=== PATIENT | female | born 1940 | race Caucasian/White ===

== ENCOUNTER 2016-08-31 11:19 | Inpatient (IN) | payer OTHER, BC ==
[2016-08-31 11:29] VITALS: BMI 21.4
--- NOTE | 2016-08-31 11:29 | PDOC ---
Attending Attestation - Resident Resident Name: Gaurav Duran - ED Attending Attestation I have performed the following: I have examined & evaluated the patient, The case was reviewed & discussed with the resident, I agree w/resident's findings & plan, Exceptions are as noted - HPI HPI: 08/31/16 11:32 The patient is a 76-year-old female with a significant past medical history of hypertension, hyperlipidemia, coronary artery disease, end-stage renal disease ( hemodialysis Tuesday, , Tuesday), who presents to the emergency department at the encouragement of her deck steward, for evaluation of a clotted AV fistula. The patient was not dialyzed today. - Physicial Exam PE: 08/31/16 11:33 The patient is well-appearing and in no acute distress Vitals noted No thrill or bruit appreciated 08/31/16 11:42 08/31/16 11:42 - Medical Decision Making 08/31/16 11:33 The patient is well-appearing and in no acute distress Will obtain labs There are no obvious indications for acute hemodialysis Will consult vascular surgery 08/31/16 11:59 EKG noted There are isolated peaked T waves in lead V2, but not elsewhere Will await labs 08/31/16 13:18 Labs noted including potassium of 7.1 I spoke to the seed laboratory technician personally The specimen was only very slightly hemolyzed Will treat with calcium, and sling and dextrose Vascular surgery aware and [address] Shiley to expedite dialysis Renal aware, and will dialyze Will admit Clinical impression: Hyperkalemia Clotted AV fistula 08/31/16 13:48 Case discussed in detail with admitting provider including history, physical exam and ancillary studies. Admitting physician has assumed care for the patient, will follow all pending diagnostics and will complete the evaluation and treatment. Discharge Disposition - Discharge Dispostion Last Admission D/C Date: 06/10/13 Admit: Yes - Diagnosis Hyperkalemia, Clotted renal dialysis AV graft - Referrals Referrals: Aldo Yen MD [Primary Care Provider] -
--- NOTE | 2016-08-31 12:18 | PDOC ---
History of Present Illness <Girma Saul - Last Filed: 08/31/16 13:41> - General History Source: Patient Exam Limitations: No Limitations - History of Present Illness Initial Comments: 08/31/16 12:13 The patient is a 76 year old female with a significant past medical history of ESRD, HTL, Hyperlipidemia receiving dialysis T/R/S, who presents to the emergency department after dialysis failed to access her fistula. The patient denies chest pain, shortness of breath, headache and dizziness. Denies fever, chills, nausea, vomit, diarrhea and constipation. Denies dysuria, frequency, urgency and hematuria. Allergies: NKDA Past surgical history: Hip replacement and AV Fistula Dr. Melisa Workman sent in <Gaurav Duran - Last Filed: 08/31/16 14:13> - General Chief Complaint: Dialysis Shunt Problem Stated Complaint: CLOTTED AV FISTULA Time Seen by Provider: 08/31/16 11:28 Past History <Girma Saul - Last Filed: 08/31/16 13:41> - Past Medical History Anemia: Yes Cardiac Disorders: No CVA: No Diabetes: No Dialysis: No Disorders: Yes (acute renal failure, membraneous nephropathy) HTN: Yes Hypercholesterolemia: Yes Suicide Attempt (Hx): No - Surgical History Abdominal Surgery: No Cardiac Surgery: No GI Surgery: No Orthopedic Surgery: Yes (Left Hip) - Immunization History Immunization Up to Date: Yes - Psycho/Social/Smoking Cessation Hx Anxiety: Yes Suicidal Ideation: No Smoking Status: No Smoking History: Never smoked Have you smoked in the past 12 months: No Number of Cigarettes Smoked Daily: 0 If you are a former smoker, when did you quit?: no Information on smoking cessation initiated: No Hx Alcohol Use: No Drug/Substance Use Hx: No Substance Use Type: None Hx Substance Use Treatment: No <Gaurav Duran - Last Filed: 08/31/16 14:13> - Past Medical History Allergies/Adverse Reactions: Allergies Allergy/AdvReac Type Severity Reaction Status Date / Time No Known Allergies Allergy Verified 08/31/16 11:29 Home Medications: Ambulatory Orders Diltiazem "Cd" [Tiazac] 420 mg PO DAILY 10/14/11 Metoclopramide Oral Soln [Reglan Oral Solution -] 10 mg PO TID #0 ml 10/18/11 Rabeprazole Sodium [Aciphex] 20 mg PO DAILY #0 tablet. 10/18/11 Sevelamer Carbonate [Renvela -] 800 mg PO TID #0 tab 10/18/11 Losartan Potassium 50 mg PO DAILY 06/07/13 Vitamin B Comp W-C [Nephro-Marquis -] 1 tablet PO DAILY 08/31/16 Review of Systems - Review of Systems Able to Perform ROS?: Yes Comments:: 08/31/16 12:18 GENERAL/CONSTITUTIONAL: No fever or chills. No weakness. HEAD, EYES, EARS, NOSE AND THROAT: No change in vision. No ear pain or discharge. No sore throat. CARDIOVASCULAR: No chest pain or shortness of breath RESPIRATORY: No cough, wheezing, or hemoptysis. GASTROINTESTINAL: No nausea, vomiting, diarrhea or constipation. GENITOURINARY: No dysuria, frequency, or change in urination. MUSCULOSKELETAL: No joint or muscle swelling or pain. No neck or back pain. SKIN: No rash NEUROLOGIC: No headache, vertigo, loss of consciousness, or change in strength/ sensation. ENDOCRINE: No increased thirst. No abnormal weight change HEMATOLOGIC/LYMPHATIC: No anemia, easy bleeding, or history of blood clots. ALLERGIC/IMMUNOLOGIC: No hives or skin allergy. <Gaurav Duran - Last Filed: 08/31/16 14:13> *Physical Exam - Vital Signs Last Vital Signs Temp Pulse Resp BP Pulse Ox 98.2 F 95 H 18 139/80 98 08/31/16 11:27 08/31/16 13:32 08/31/16 11:27 08/31/16 11:27 08/31/16 13:32 <Girma Saul - Last Filed: 08/31/16 13:41> - Vital Signs Last Vital Signs Temp Pulse Resp BP Pulse Ox 98.2 F 101 H 18 139/80 97 08/31/16 11:27 08/31/16 11:27 08/31/16 11:27 08/31/16 11:08/31/16 11:27 - Physical Exam Comments: 08/31/16 12:20 GENERAL: Awake, alert, and fully oriented, in no acute distress HEAD: No signs of trauma, normocephalic, atraumatic EYES: PERRLA, EOMI, sclera anicteric, conjunctiva clear ENT: Auricles normal inspection, hearing grossly normal, nares patent, oropharynx clear without exudates. Moist mucosa NECK: Normal ROM, supple, no lymphadenopathy, JVD, or masses LUNGS: No distress, speaks full sentences, clear to auscultation bilaterally HEART: Regular rate and rhythm, normal S1 and S2, no murmurs, rubs or gallops, peripheral pulses normal and equal bilaterally. ABDOMEN: Soft, nontender, normoactive bowel sounds. No guarding, no rebound. No masses EXTREMITIES: +AV graft X2 noted on LUE. Unable to appreciate thrill or bruit on either. Normal range of motion, no edema. No clubbing or cyanosis. Good distal pulses. NEUROLOGICAL: Cranial nerves II through XII grossly intact. Normal speech, normal gait, no focal sensorimotor deficits SKIN: Warm, Dry, normal turgor, no rashes or lesions noted. <Gaurav Duran - Last Filed: 08/31/16 14:13> ED Treatment Course - LABORATORY CBC & Chemistry Diagram: 08/31/16 12:18 08/31/16 12:18 - ADDITIONAL ORDERS Additional order review: Laboratory Results 08/31/16 08/31/16 08/31/16 12:18 12:18 12:18 INR 0.92 PTT (Actin FS) 32.3 Sodium 137 Potassium 7.1 H* D Chloride 104 Carbon Dioxide 22 Anion Gap 11 BUN 107 H* D Creatinine 7.9 H* D Creat Clearance w eGFR 4.94 Random Glucose 85 Calcium 8.9 Magnesium 2.5 H Total Bilirubin 0.4 AST 35 D ALT 21 Alkaline Phosphatase 124 H Creatine Kinase 170 CK-MB (CK-2) 1.6 Troponin I < 0.02 Total Protein 7.6 Albumin 3.5 08/31/16 12:18 RBC 3.51 L MCV 96.4 H MCHC 34.1 RDW 13.1 MPV 8.8 D Neutrophils % 44.8 D Lymphocytes % 41.9 H Monocytes % 9.6 Eosinophils % 3.1 Basophils % 0.6 - Medications Given in the ED: ED Medications Discontinued Medications Generic Name Dose Route Start Last Admin Trade Name Freq PRN Reason Stop Dose Admin Dextrose 50 gm 08/31/16 13:07 08/31/16 13:24 D50w (Vial) - IVPUSH 08/31/16 13:08 50 gm NOW ONE Administration Insulin Human Regular 10 units 08/31/16 13:07 08/31/16 13:24 Novolin R Vial *For Ivpush Or Iv Drip Only* IVPUSH 08/31/16 13:08 10 unit ONCE ONE Administration <Girma Saul - Last Filed: 08/31/16 13:41> - LABORATORY CBC & Chemistry Diagram: 08/31/16 12:18 08/31/16 12:18 <Gaurav Duran - Last Filed: 08/31/16 14:13> Medical Decision Making - Medical Decision Making 08/31/16 13:37 Dr. Melisa Workman was consulted regarding the patient at 1:38pm Dr. Aldo Yen was called regarding the patient at 1:43pm <Girma Saul - Last Filed: 08/31/16 13:41> - Medical Decision Making 08/31/16 12:22 Ms. Burton reported to ER under advice of Dr. Melisa Herzog after failure of scheduled dialysis this AM. EKG showed minimal peaked T-waves in V2, labs ordered to look for Hyperkalemia. Patient in no acute distress. Neurology at bedside. Vascular surgery consulted. Potassium 7.1. Dr. Tenorio to put in temporary femoral shiley for dialysis. 08/31/16 14:10 Dr. Tenorio put in Shiley for temporary dialysis today. Scheduled for surgery to fix AV tomorrow AM. <Gaurav Duran - Last Filed: 08/31/16 14:13> *DC/Admit/Observation/Transfer <Girma Saul - Last Filed: 08/31/16 13:41> - Attestations Physician Attestion: 08/31/16 14:12 I, Dr. Gaurav Duran, attest that this document has been prepared under my direction and personally reviewed by me in its entirety. I further attest, that it accurately reflects all work, treatment, procedures and medical decision -making performed by me. <Gaurav Duran - Last Filed: 08/31/16 14:13> Diagnosis at time of Disposition: Hyperkalemia, Clotted renal dialysis AV graft - Referrals Referrals: Aldo Yen MD [Primary Care Provider] -
[2016-08-31 12:34] LABS: BASOPHIL 0.6 % (0-2.0); EOSINOPHIL 3.1 % (0-4.5); MCH 32.8 pg (25.7-33.7); MCHC 34.1 g/dl (32.0-36.0); MEAN CELL VOLUME 96.4 fl (80-96); MEAN PLT VOLUME 8.8 fl (7.5-11.1); NEUTROPHILS 44.8 % (42.8-82.8); PLATELET COUNT 192 K/MM3 (134-434); RDW 13.1 % (11.6-15.6); WHITE BLOOD COUNT 10.2 K/mm3 (4.0-10.0)
[2016-08-31 12:50] LABS: ALBUMIN 3.5 g/dl (3.4-5.0); ANION GAP 11 (8-16); BILIRUBIN,TOTAL 0.4 mg/dL (0.2-1.0); CALCIUM 8.9 mg/dL (8.5-10.1); CO2 22 mmol/L (21-32); GLUCOSE,RANDOM 85 mg/dL (74-106); SGPT/ALT 21 U/L (12-78); TOT PROT 7.6 g/dl (6.4-8.2)
[2016-08-31 12:55] LABS: ALK PHOS 124 U/L (45-117); TROPONIN I < 0.02 ng/ml (0.00-0.05)
[2016-08-31 13:01] LABS: MAGNESIUM 2.5 mg/dL (1.8-2.4)
[2016-08-31 13:02] LABS: SGOT/AST 35 U/L (15-37)
[2016-08-31 13:05] LABS: CREATININE 7.9 mg/dL (0.55-1.02)
--- NOTE | 2016-08-31 13:06 | EKG ---
Test Reason : Blood Pressure : / mmHG Vent. Rate : 096 BPM Atrial Rate : 096 BPM P-R Int : 190 ms QRS Dur : 070 ms QT Int : 344 ms P-R-T Axes : 033 024 043 degrees QTc Int : 434 ms NORMAL SINUS RHYTHM INTRA ATRIAL CONDUCTION ABNORMALITY EARLY TRANCITION IN V2. IMBALANCE NEEDS EXCLUSION WHEN COMPARED WITH ECG OF 09-JUN-2013 09:31, BASE LINE ARTIFACTS. CORELATE CLINICALLY. QT HAS SHORTENED Confirmed by JARED COBURN MD ([id number]) on 08/31/2016 1:06:30 PM Referred By: Confirmed By:JARED COBURN MD
--- NOTE | 2016-08-31 13:06 | CONSULT ---
Consult Consult Specialty:: Nephrology ( [facility]/ [facility]) Reason for Consultation:: Patient with ESRD, admitted with clotted AVF. - History Source History Provided By: Patient, Medical Record - Past Medical History Cardio/Vascular: Yes: CAD, HTN, Hyperlipdemia Gastrointestinal: Yes: Constipation, Peptic Ulcer Disease Renal/: Yes: Renal Failure (ESRD on HD TTS), Hemodialysis Psych: Yes: Depression - Past Surgical History Past Surgical History: Yes: AV Fistula/Graft - Alcohol/Substance Use Hx Alcohol Use: No History of Substance Use: reports: None - Smoking History Smoking history: Never smoked Have you smoked in the past 12 months: No Aproximately how many cigarettes per day: 0 If you are a former smoker, when did you quit?: no - Social History Usual Living Arrangement: With Child ADL: Family Assistance Home Medications - Allergies Allergies/Adverse Reactions: Allergies Allergy/AdvReac Type Severity Reaction Status Date / Time No Known Allergies Allergy Verified 08/31/16 11:29 - Home Medications Home Medications: Ambulatory Orders Diltiazem "Cd" [Tiazac] 420 mg PO DAILY 10/14/11 Metoclopramide Oral Soln [Reglan Oral Solution -] 10 mg PO TID #0 ml 10/18/11 Rabeprazole Sodium [Aciphex] 20 mg PO DAILY #0 tablet.dr 10/18/11 Sevelamer Carbonate [Renvela -] 800 mg PO TID #0 tab 10/18/11 Losartan Potassium 50 mg PO DAILY 06/07/13 Vitamin B Comp W-C [Nephro-Marquis -] 1 tablet PO DAILY 08/31/16 Review of Systems - Review of Systems Constitutional: reports: No Symptoms Eyes: reports: No Symptoms HENT: denies: Difficult Swallowing Neck: reports: No Symptoms Cardiovascular: denies: Chest Pain, Palpitations, Shortness of Breath Respiratory: denies: Cough, SOB Gastrointestinal: denies: Abdominal Pain Psychiatric: reports: Anxiety Physical Exam Vital Signs: Vital Signs Temperature 98.2 F 08/31/16 11:27 Pulse Rate 101 H 08/31/16 11:27 Respiratory Rate 18 08/31/16 11:27 Blood Pressure 139/80 08/31/16 11:27 O2 Sat by Pulse Oximetry (%) 97 08/31/16 11:27 Constitutional: Yes: Anxious Eyes: Yes: Conjunctiva Clear HENT: Yes: Atraumatic, Normocephalic Cardiovascular: Yes: Regular Rate and Rhythm, S1, S2. 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 Has tendency for Hyperkalemia. Today's labs pending. Dr. Chester Tenorio informed about the patient. If the Serum K+ is elevated, will dialyze her using an acute catheter,and then schedule for declotting in the morning. Orders written and reviewed with the RN. Melisa Herzog MD
[2016-08-31 13:07] LABS: INR 0.92 (0.82-1.09); PROTHROMBIN TIME (PATIENT) 10.1 SEC (9.98-11.88)
[2016-08-31] MEDS ORDERED: INSULIN REGULAR HUMAN 100 UNITS/ML *VIAL IVPUSH ONE (13:07)
[2016-08-31] MEDS ORDERED: CALCIUM GLUCONATE 10% - 1,000 MG/10 ML VIAL IVPUSH ONE (13:07)
[2016-08-31] MEDS ORDERED: DEXTROSE 50%-WATER - 25 GM/50 ML VIAL IVPUSH ONE (13:07)
[2016-08-31] MEDS ORDERED: DEXTROSE 50%-WATER - 25 GM/50 ML VIAL ONE (13:12)
[2016-08-31] MEDS ORDERED: INSULIN REGULAR HUMAN 100 UNITS/ML *VIAL ONE (13:13)
[2016-08-31] MEDS ORDERED: DEXTROSE 50%-WATER 50 ML DISP.SYRIN ONE (13:14)
--- NOTE | 2016-08-31 14:28 | CONSULT ---
Consult - Past Medical History Cardio/Vascular: Yes: CAD, HTN, Hyperlipdemia Gastrointestinal: Yes: Constipation, Peptic Ulcer Disease Renal/: Yes: Renal Failure (ESRD on HD TTS), Hemodialysis Psych: Yes: Depression - Past Surgical History Past Surgical History: Yes: AV Fistula/Graft - Alcohol/Substance Use Hx Alcohol Use: No History of Substance Use: reports: None - Smoking History Smoking history: Never smoked Have you smoked in the past 12 months: No Aproximately how many cigarettes per day: 0 If you are a former smoker, when did you quit?: no - Social History Usual Living Arrangement: With Child ADL: Family Assistance Home Medications - Allergies Allergies/Adverse Reactions: Allergies Allergy/AdvReac Type Severity Reaction Status Date / Time No Known Allergies Allergy Verified 08/31/16 11:29 - Home Medications Home Medications: Ambulatory Orders Diltiazem "Cd" [Tiazac] 420 mg PO DAILY 10/14/11 Metoclopramide Oral Soln [Reglan Oral Solution -] 10 mg PO TID #0 ml 10/18/11 Rabeprazole Sodium [Aciphex] 20 mg PO DAILY #0 tablet.dr 10/18/11 Sevelamer Carbonate [Renvela -] 800 mg PO TID #0 tab 10/18/11 Losartan Potassium 50 mg PO DAILY 06/07/13 Vitamin B Comp W-C [Nephro-Marquis -] 1 tablet PO DAILY 08/31/16 Physical Exam Vital Signs: Vital Signs Temperature 98.2 F 08/31/16 11:27 Pulse Rate 95 H 08/31/16 13:32 Respiratory Rate 18 08/31/16 11:27 Blood Pressure 139/80 08/31/16 11:27 O2 Sat by Pulse Oximetry (%) 98 08/31/16 13:32 Assessment/Plan VAscular Surgery he patient is a 76-year-old female with a significant past medical history of hypertension, hyperlipidemia, coronary artery disease, end-stage renal disease ( hemodialysis Tuesday, , Tuesday), who presents to the emergency department at the encouragement of her surveillance sensor officer, for evaluation of a clotted AV graft. The patient was not dialyzed today. PE Head - NC/At lung - cTA heart - RRR abd - soft,nt,nd ext - left arm avg -- no bruit and no thrill Shiley cath placed in left femoral vein. Guide wire removed. all ports flushed. Can us for hd NPO past midnight for declotting in am Chester Tenorio DO
[2016-08-31 18:34] LABS: ANION GAP 7 (8-16); CALCIUM 8.1 mg/dL (8.5-10.1); CO2 32 mmol/L (21-32); CREATININE 2.1 mg/dL (0.55-1.02); GLUCOSE,RANDOM 128 mg/dL (74-106)
[2016-08-31] MEDS: SEVELAMER CARBONATE 800 MG TAB (FP) PO SCH (21:12)
[2016-08-31] MEDS: METOCLOPRAMIDE HCL 5 MG/5 ML UNIT DOSE CUP PO SCH (21:13)
[2016-09-01] MEDS: SEVELAMER CARBONATE 800 MG TAB (FP) PO SCH ×2 (06:41→17:00)
[2016-09-01] MEDS: METOCLOPRAMIDE HCL 5 MG/5 ML UNIT DOSE CUP PO SCH ×2 (06:41→17:00)
--- NOTE | 2016-09-01 07:20 | HP ---
Admitting History and Physical - Admission Chief Complaint: 76 y.o F with ESRD presented to ER due to clotted AV graft and inability to be dialized. Her K was 7.1 and the patient was admitted for further management. Vascular surgeopn place Shiley cath into left groin with subsequent successful HD, Her K came down to 3.6. the patient is scheduled for declotting of the AV graft. 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 HLD. Depression. HTN. 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 Umbilical hernia repair Frequent vomiting, GERD. Episodes of vaso-vagal syncope. History Source: Patient, Medical Record Limitations to Obtaining History: No Limitations - Past Medical History Cardiovascular: Yes: CAD, HTN, Hyperlipdemia Gastrointestinal: Yes: Constipation, Peptic Ulcer Disease Renal/: Yes: Renal Failure (ESRD on HD TTS), Hemodialysis Heme/Onc: Yes: Anemia (of ESRD) Psych: Yes: Depression - Past Surgical History Past Surgical History: Yes: AV Fistula/Graft - Smoking History Smoking history: Never smoked Have you smoked in the past 12 months: No Aproximately how many cigarettes per day: 0 If you are a former smoker, when did you quit?: no - Alcohol/Substance Use Hx Alcohol Use: No History of Substance Use: reports: None - Social History ADL: Family Assistance History of Recent Travel: No Home Medications - Allergies Allergies/Adverse Reactions: Allergies Allergy/AdvReac Type Severity Reaction Status Date / Time No Known Allergies Allergy Verified 08/31/16 11:29 - Home Medications Home Medications: Ambulatory Orders Diltiazem "Cd" [Tiazac] 420 mg PO DAILY 10/14/11 Metoclopramide Oral Soln [Reglan Oral Solution -] 10 mg PO TID #0 ml 10/18/11 Rabeprazole Sodium [Aciphex] 20 mg PO DAILY #0 tablet. 10/18/11 Sevelamer Carbonate [Renvela -] 800 mg PO TID #0 tab 10/18/11 Losartan Potassium 50 mg PO DAILY 06/07/13 Vitamin B Comp W-C [Nephro-Marquis -] 1 tablet PO DAILY 08/31/16 Family Disease History - Family Disease History Family History: Unremarkable Review of Systems - Review of Systems Constitutional: reports: No Symptoms Eyes: reports: No Symptoms HENT: denies: Difficult Swallowing, Ear Discharge, Nasal Congestion Neck: reports: No Symptoms Cardiovascular: denies: Chest Pain, Edema, Palpitations, Shortness of Breath Respiratory: denies: Cough, Exercise Intolerance, Hemoptysis, Snoring, Wheezing Gastrointestinal: reports: Constipation. denies: Abdominal Pain, Bloating, Vomiting Genitourinary: denies: Burning, Discharge Breasts: reports: No Symptoms Reported Musculoskeletal: reports: Muscle Weakness Integumentary: reports: No Symptoms Neurological: denies: Change in LOC, Change in Speech, Confusion, Seizure, Syncope Endocrine: reports: No Symptoms Hematology/Lymphatic: reports: No Symptoms Psychiatric: reports: Depression Physical Examination Vital Signs: Vital Signs Temperature 99.2 F 09/01/16 05:25 Pulse Rate 99 H 09/01/16 05:25 Respiratory Rate 20 09/01/16 05:25 Blood Pressure 120/84 09/01/16 05:25 O2 Sat by Pulse Oximetry (%) 98 08/31/16 21:00 Constitutional: Yes: No Distress, Anxious. No: Obese, Thin Eyes: Yes: Conjunctiva Clear, EOM Intact HENT: Yes: Atraumatic, Normocephalic. No: Drooling, Epistaxis, Hoarseness Neck: Yes: Trachea Midline. No: Supple, Decreased ROM, Lymphadenopathy Cardiovascular: Yes: Regular Rate and Rhythm, Tachycardia. No: JVD, Rub Respiratory: Yes: Regular, CTA Bilaterally. No: Accessory Muscle Use, Bradypnea , Cough, Diminished, Dullness Gastrointestinal: Yes: Normal Bowel Sounds, Soft. No: Abdomen, Obese, Ascites, Distention, Palpable Mass, Tenderness ...Rectal Exam: Yes: Deferred Renal/: Yes: Other (Left groin Shiley catheter in place). No: Bladder Distention, CVA Tenderness - Left, CVA Tenderness - Right Musculoskeletal: Yes: Muscle Weakness Extremities: Yes: Other (Left UE AV graft without thrill). No: Calf Tenderness , Cold, Cool, Cyanosis, Erythema, Shortened Edema: No Peripheral Pulses: Left Doralis Pedis: 3+, Right Dorsalis Pedis: 3+ Integumentary: Yes: WNL Neurological: Yes: Alert, Oriented. No: Aphasia, Asterixis, Ataxia, Dysarthria , Facial Droop, Lethargy, Seizure, Unresponsive ...Motor Strength: WNL Psychiatric: Yes: Alert, Oriented. No: Agitated, Suicidal Ideation Labs: CBC, BMP 08/31/16 17:45 Laboratory Results - last 24 hr 08/31/16 08/31/16 08/31/16 12:18 12:18 12:18 WBC 10.2 H RBC 3.51 L Hgb 11.5 Hct 33.8 MCV 96.4 H MCHC 34.1 RDW 13.1 Plt Count 192 MPV 8.8 D Neutrophils % 44.8 D Lymphocytes % 41.9 H Monocytes % 9.6 Eosinophils % 3.1 Basophils % 0.6 INR 0.92 PTT (Actin FS) Sodium 137 Potassium 7.1 H* D Chloride 104 Carbon Dioxide 22 Anion Gap 11 BUN 107 H* D Creatinine 7.9 H* D Creat Clearance w eGFR 4.94 Random Glucose 85 Calcium 8.9 Magnesium 2.5 H Total Bilirubin 0.4 AST 35 D ALT 21 Alkaline Phosphatase 124 H Creatine Kinase 170 CK-MB (CK-2) 1.6 Troponin I < 0.02 Total Protein 7.6 Albumin 3.5 Blood Type Antibody Screen 08/31/16 08/31/16 08/31/16 12:18 12:59 17:45 WBC RBC Hgb Hct MCV MCHC RDW Plt Count MPV Neutrophils % Lymphocytes % Monocytes % Eosinophils % Basophils % INR PTT (Actin FS) 32.3 Sodium 142 Potassium 3.6 D Chloride 103 Carbon Dioxide 32 D Anion Gap 7 L BUN 23 H D Creatinine 2.1 H D Creat Clearance w eGFR Random Glucose 128 H D Calcium 8.1 L Magnesium Total Bilirubin AST ALT Alkaline Phosphatase Creatine Kinase CK-MB (CK-2) Troponin I Total Protein Albumin Blood Type A POSITIVE Antibody Screen Negative Imaging - Results EKG: Report Reviewed Problem List - Problems (1) Clotted renal dialysis AV graft Assessment/Plan: Pt is scheduled today AM for unclotting AV graft-Dr. Tenorio. Code(s): T82.868A - THROMBOSIS DUE TO VASCULAR PROSTH DEV/GRFT, INIT Qualifiers: Encounter type: initial encounter Qualified Code(s): T82.868A - Thrombosis due to vascular prosthetic devices, implants and grafts, initial encounter (2) Hyperkalemia Assessment/Plan: Hyperkalemia-improved after HD. Continue to observe the pt on telemetry. Code(s): E87.5 - HYPERKALEMIA (3) ESRD on dialysis Assessment/Plan: HD as per nephrology via [facility] Code(s): N18.6 - END STAGE RENAL DISEASE Z99.2 - DEPENDENCE ON RENAL DIALYSIS
[2016-09-01] MEDS ORDERED: PT OWN MED DRAWER 7, Y5N ONE (09:26)
[2016-09-01] MEDS ORDERED: PANTOPRAZOLE 20 MG TABLET (FP) PO SCH (10:00)
[2016-09-01] MEDS ORDERED: VITAMIN B COMP W-C 1 EA TABLET PO SCH (10:00)
[2016-09-01] MEDS: LOSARTAN POTASSIUM 50 MG TABLET (FP) PO SCH ×2 (10:36→11:50)
--- NOTE | 2016-09-01 12:05 | PN ---
Progress Note (short form) - Note Progress Note: Renal Follow up for ESRD on HD Pt seen and examined at the bedside feels well no acute complaints no sob, chest pain, N/V/D awaiting AVG declott procedure Vital Signs Temperature 97.8 F 09/01/16 08:30 Pulse Rate 96 H 09/01/16 08:30 Respiratory Rate 20 09/01/16 08:30 Blood Pressure 129/94 09/01/16 08:30 O2 Sat by Pulse Oximetry (%) 98 08/31/16 21:00 Intake & Output 08/29/16 08/30/16 08/31/16 09/01/16 23:59 23:59 23:59 23:59 Intake Total 350 Balance 350 Weight 110 lb 107 lb 8 oz Gen: NAD CVS: RRR, No M/R Lungs: CTA, no rales or wheeze Abd: soft NT/ND Ext: No edema, clubbing or cyanosis Access: Left ARM AVG no thrill or bruit CBC, BMP 08/31/16 12:18 08/31/16 17:45 Current Medications Diltiazem HCl (Cardizem Cd -) 120 mg PO DAILY [facility] Last Admin: 09/01/16 11:50 Dose: 120 mg Diltiazem HCl (Cardizem Cd -) 300 mg PO DAILY [facility] Last Admin: 09/01/16 11:50 Dose: 300 mg Losartan Potassium (Cozaar -) 50 mg PO DAILY [facility] Last Admin: 09/01/16 11:50 Dose: 50 mg Metoclopramide HCl (Reglan Oral Solution -) 10 mg PO TID [facility] Last Admin: 09/01/16 06:41 Dose: Not Given Multivit/Ca Carb/B Cmplx/FA/Prenat (Nephro-Marquis -) 1 tablet PO DAILY [facility] Last Admin: 09/01/16 10:36 Dose: Not Given Pantoprazole Sodium (Protonix -) 20 mg PO DAILY [facility] Last Admin: 09/01/16 10:36 Dose: Not Given Sevelamer Carbonate (Renvela -) 800 mg PO TID [facility] Last Admin: 09/01/16 06:41 Dose: Not Given A/P 76 year old woman with PMhx of ESRD on HD (TTS), CAD, Hypertension, HLD who presented with clotted AVG and hyperkalemia #Clotted AVG with Hyperkalemia in pt with ESRD on HD s/p urgent HD via femoral temporary HD catheter K improved s/p Hd yesterday evening but labs were drawn right after HD Check repeat K levels today, will plan for short HD if K levels > 5.5 Dr. Tenorio to take pt to the OR Today if K is stable pt can be discharged and resume dialysis as an outpatient tomorrow Thank you Fawad Manuel DO
[2016-09-01] MEDS ORDERED: HEPARIN NA (PORCINE) 5,000 UNITS/ML 1ML VIAL ONE (12:55)
[2016-09-01] MEDS ORDERED: MIDAZOLAM HCL 2 MG/2 ML SINGLE DOSE VIAL ONE (13:08)
[2016-09-01] MEDS ORDERED: ceFAZolin SODIUM 1 GM VIAL IVPB ONE (13:10)
[2016-09-01] MEDS ORDERED: PROPOFOL 20 ML ONE (13:41)
--- NOTE | 2016-09-01 14:00 | OP ---
Operative Note - Note: Operative Date: 09/01/16 Pre-Operative Diagnosis: Clotted left avg Operation: venogram, suction thrombectomy, venoplasty left avg Findings: Stent occlusion in vein Post-Operative Diagnosis: Same as Pre-op Surgeon: Chester Tenorio Anesthesia: Fractional Estimated Blood Loss (mls): 50 Operative Report Dictated: Yes
--- NOTE | 2016-09-01 14:02 | PN ---
Progress Note (short form) - Note Progress Note: Vascular Surgery S/P declot of left avg Good bruit and thrill Cleared for DC Chester Tenorio DO
[2016-09-01] MEDS ORDERED: oxyCODONE HCL 5 MG TABLET PO PRN (14:06)
[2016-09-01] MEDS ORDERED: ONDANSETRON 4 MG/2 ML VIAL IVPUSH PRN (14:06)
[2016-09-01] MEDS ORDERED: PROMETHAZINE HCL 25 MG/1 ML VIAL IVPUSH PRN (14:06)
[2016-09-01] MEDS ORDERED: BACITRACIN 15 GM TUBE TOPICAL OINTMENT ONE (15:29)
--- NOTE | 2016-09-01 15:55 | OP ---
DATE OF OPERATION: 09/01/2016 PREOPERATIVE DIAGNOSIS: Clotted left arteriovenous graft. POSTOPERATIVE DIAGNOSIS: Clotted left arteriovenous graft. PROCEDURE: Venogram, suction thrombectomy, venoplasty left arteriovenous graft. SURGEON: Chester Bartlett MD ESTIMATED BLOOD LOSS: 15 mL. INDICATIONS: The patient is a 72-year-old female who has a clotted AV graft. She need dialysis through a catheter yesterday and now needs suction thrombectomy. The patient was consented for the procedure understanding all risks, benefits and alteratives. PROCEDURE IN DETAIL: Once in the operating room, the patient was placed on the operating table in supine position. The area of the left arm was prepped and draped in a sterile surgical manner. We then went ahead and using a micropuncture needle puncture the proximal AV graft and a micropuncture was inserted and a short 6-Swedish sheath was inserted. We shot a venogram by hand injection showing that the graft was clotted toward the arterial portion. At this point we placed a 0.035 floppy guidewire up into the arterial anastomosis and using an EVX thrombectomy catheter we performed thrombectomy of the proximal AV graft all the way up to the arterial anastomosis and across it. We then went ahead and in the same fashion placed another short 6-Swedish sheath facing the venous anastomosis and we went ahead and saw that the venous anastomosis was to the basilic vein and there was a stent to the basilic vein that was occluded on hand injection via venogram. We placed a 0.035 floppy guidewire through our stent into the central veins. We then went ahead and use a EVX catheter and suctioned the the basilic vein and the central veins and the distal AV graft. We then shot another venogram by hand injection showing that the stent was still occluded. We then used an 8 x 8 [place] balloon and performed venoplasty of the vein and the distal AV graft. We then placed a 0.135 floppy guidewire back across the arterial anastomosis to the other sheath and from venoplasty of the proximal AV graft onto the arterial anastomosis. There was a good thrill in the AV graft now which was strong. We then shot a completion venogram now showing that the graft was patent and the stent was patent and there was good flow. At this point we used a 4-0 Vicryl in [id number] stitch placed around each sheath and the sheaths were pulled. The area was wet and dried, Dermabond was placed. The patient tolerated the procedure well with no complications. The patient was transferred to the PACU in stable condition. CHESTER BARTLETT DO [id number]
[2016-09-01] MEDS ORDERED: SEVELAMER CARBONATE 800 MG TAB (FP) PO SCH (17:30)
[2016-09-01 19:09] LABS: ANION GAP 10 (8-16); CALCIUM 8.9 mg/dL (8.5-10.1); CO2 27 mmol/L (21-32); CREATININE 5.1 mg/dL (0.55-1.02); GLUCOSE,RANDOM 133 mg/dL (74-106)
[2016-09-01 20:39] VITALS: BP 146/83; PULSE 100; TEMP 98.3
--- NOTE | 2016-09-01 21:03 | DS ---
Physical Examination Vital Signs: Vital Signs Temperature 98.3 F 09/01/16 20:36 Pulse Rate 100 H 09/01/16 20:36 Respiratory Rate 20 09/01/16 20:36 Blood Pressure 146/83 09/01/16 20:36 O2 Sat by Pulse Oximetry (%) 97 09/01/16 20:36 Findings/Remarks: Unclogging of the graft performed. Cleared for discharge by nephrology and vascular surgery. Constitutional: Yes: No Distress Eyes: Yes: Conjunctiva Clear, EOM Intact HENT: Yes: Atraumatic, Normocephalic Neck: Yes: Supple, Trachea Midline Cardiovascular: Yes: Regular Rate and Rhythm Respiratory: Yes: Regular, CTA Bilaterally Gastrointestinal: Yes: Normal Bowel Sounds, Soft Edema: No Peripheral Pulses WNL: Yes Integumentary: Yes: WNL Neurological: Yes: Alert, Oriented ...Motor Strength: WNL Psychiatric: Yes: WNL Labs: CBC, BMP 09/01/16 16:40 Discharge Summary Reason For Visit: HYPERKALEMIA, clotted AV graft Current Active Problems Clotted renal dialysis AV graft (Acute) Hyperkalemia (Acute) - Instructions Referrals: Aldo Yen MD [Primary Care Provider] - Disposition: HOME - Home Medications Comprehensive Discharge Medication List: Ambulatory Orders Diltiazem "Cd" [Tiazac] 420 mg PO DAILY 10/14/11 Metoclopramide Oral Soln [Reglan Oral Solution -] 10 mg PO TID #0 ml 10/18/11 Rabeprazole Sodium [Aciphex] 20 mg PO DAILY #0 tablet. 10/18/11 Sevelamer Carbonate [Renvela -] 800 mg PO TID #0 tab 10/18/11 Losartan Potassium 50 mg PO DAILY 06/07/13 Vitamin B Comp W-C [Nephro-Marquis -] 1 tablet PO DAILY 08/31/16
[2016-09-01] MEDS ORDERED: BACITRACIN 15 GM TUBE TOPICAL OINTMENT TP SCH (22:00)
[2016-09-01] MEDS ORDERED: ATORVASTATIN CA 10 MG TABLET (FP) PO SCH (22:00)
[2016-09-01] MEDS ORDERED: METOCLOPRAMIDE HCL 5 MG/5 ML UNIT DOSE CUP PO SCH (22:00)
[2016-09-02] MEDS ORDERED: LOSARTAN POTASSIUM 50 MG TABLET (FP) PO SCH (10:00)
[2016-09-02] MEDS ORDERED: VITAMIN B COMP W-C 1 EA TABLET PO SCH (10:00)
[2016-09-02] MEDS ORDERED: PANTOPRAZOLE 20 MG TABLET (FP) PO SCH (10:00)
[2016-09-03 00:19] LABS: HEP B SURFACE AB Reactive (.)
== END 2016-09-01 21:52 | disposition home or self-care (01) | DRG 252 ==
LOC: JER 11:19 → JERBED 13:20 → J4W 18:16
PROVIDERS: ADMIT Internal Medicine; ATTEND Internal Medicine
PROC: 5A1D60Z (ICD-10-PCS; 2016-08-31)
PROC: 057C3ZZ Dilation of Left Basilic Vein, Percutaneous Approach (ICD-10-PCS; 2016-09-01)
PROC: B51NYZZ Fluoroscopy of Left Upper Extremity Veins using Other Contrast (ICD-10-PCS; 2016-09-01)
PROC: 05CC3ZZ Extirpation of Matter from Left Basilic Vein, Percutaneous Approach (ICD-10-PCS; principal; 2016-09-01 11:30)
DX: T82.868A Thrombosis due to vascular prosthetic devices, implants and grafts, initial encounter (principal); N18.6 End stage renal disease; I13.11 Hypertensive heart and chronic kidney disease without heart failure, with stage 5 chronic kidney disease, or end stage renal disease; Y83.8 Other surgical procedures as the cause of abnormal reaction of the patient, or of later complication, without mention of misadventure at the time of the procedure; E87.5 Hyperkalemia; Z99.2 Dependence on renal dialysis; I25.10 Atherosclerotic heart disease of native coronary artery without angina pectoris
CPT/HCPCS: 36415; 71010-TC; 76000-TC; 80048; 80053; 82550; 82553; 83735; 84484; 85025; 85610; 85730; 86704; 86706; 86708; 86803; 86850; 86900; 86901; 87340; 93005; 93010; 94760; 99285-25; J1644

== ENCOUNTER 2017-06-04 07:47 | Emergency (ER) | payer OTHER, BC ==
--- NOTE | 2017-06-04 07:54 | PDOC ---
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 Pt. 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 Denies anticoagulation. Similar presentation (09/01/16) with admission for thrombosis of vasuclar device with temporal femoral Shiley catheter for dialysis d/t hyperkalemia and EKG changes. subsequent surgical intevrenton ( L creation of AVG and thrombectomy ~09/07/16). Patient able to produce urine. Denies F/C, N/V , CP, SOB, abdominal pain, diarrhea, constipation, urinary complaints, weakness , lightheadedness, sensory changes. Past History - Past Medical History Allergies/Adverse Reactions: Allergies Allergy/AdvReac Type Severity Reaction Status Date / Time No Known Allergies Allergy Verified 06/04/17 07:56 Home Medications: Ambulatory Orders Diltiazem "Cd" [Tiazac] 420 mg PO DAILY 10/14/11 Rabeprazole Sodium [Aciphex] 20 mg PO DAILY #0 tablet. 10/18/11 Losartan Potassium 50 mg PO DAILY 06/07/13 Vitamin B Comp W-C [Nephro-Marquis -] 1 tablet PO DAILY 08/31/16 Metoclopramide HCl [Reglan] 10 mg PO TID 04/23/17 Hydralazine HCl 50 mg PO BID 06/04/17 Anemia: Yes Cardiac Disorders: (CAD) CVA: No COPD: No Diabetes: No Dialysis: Yes ([id number]) Disorders: Yes (acute renal failure, membraneous nephropathy) HTN: Yes Hypercholesterolemia: Yes - Surgical History Abdominal Surgery: No Cardiac Surgery: No GI Surgery: No Orthopedic Surgery: Yes (Left Hip) - Immunization History Immunization Up to Date: Yes - Suicide/Smoking/Psychosocial Hx Smoking Status: No Smoking History: Never smoked Have you smoked in the past 12 months: No Number of Cigarettes Smoked Daily: 0 If you are a former smoker, when did you quit?: no Hx Alcohol Use: No Drug/Substance Use Hx: No Substance Use Type: None Hx Substance Use Treatment: No Review of Systems - Review of Systems Comments:: 06/04/17 07:53 GENERAL/CONSTITUTIONAL: No fever or chills. No weakness. HEAD, EYES, EARS, NOSE AND THROAT: No change in vision. No ear pain or discharge. No sore throat. CARDIOVASCULAR: No chest pain or shortness of breath RESPIRATORY: No cough, wheezing, or hemoptysis. GASTROINTESTINAL: No nausea, vomiting, diarrhea or constipation. GENITOURINARY: No dysuria, frequency, or change in urination. MUSCULOSKELETAL: No joint or muscle swelling or pain. No neck or back pain. SKIN: No rash NEUROLOGIC: No headache, vertigo, loss of consciousness, or change in strength/ sensation. ENDOCRINE: No increased thirst. No abnormal weight change HEMATOLOGIC/LYMPHATIC: No anemia, easy bleeding, or history of blood clots. ALLERGIC/IMMUNOLOGIC: No hives or skin allergy. *Physical Exam - Physical Exam Comments: 06/04/17 07:53 GENERAL: Awake, alert, and fully oriented, in no acute distress HEAD: No signs of trauma, normocephalic, atraumatic EYES: PERRLA, EOMI, sclera anicteric, conjunctiva clear ENT: Auricles normal inspection, hearing grossly normal, nares patent, oropharynx clear without exudates. Moist mucosa NECK: Normal ROM, supple, no lymphadenopathy, JVD, or masses LUNGS: No distress, speaks full sentences, clear to auscultation bilaterally HEART: Regular rate and rhythm, normal S1 and S2, no murmurs, rubs or gallops, peripheral pulses normal and equal bilaterally. ABDOMEN: Soft, nontender, normoactive bowel sounds. No guarding, no rebound. No masses EXTREMITIES : Normal inspection, Normal range of motion, no edema. No clubbing or cyanosis. NEUROLOGICAL: Cranial nerves II through XII grossly intact. 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 Denies sensory or temperature changes in BL UE ext, weakness, or skin changes. Denies anticoagulation. Similar presentation (09/01/16) with admission for thrombosis of vasuclar device with temporal femoral Shiley catheter for dialysis d/t hyperkalemia and EKG changes. Subsequent surgical intevrenton ( L creation of AVG and thrombectomy ~09/07/16). Patient able to produce urine. Denies F/C, N/V , CP, SOB, abdominal pain, diarrhea, constipation, urinary complaints, weakness , lightheadedness, sensory changes. HDS, with intact BL radial pulses; palpable and symmetric. Will evaluate pt. for fluid overload, uremia, electrolyte abnormalities and metabolic disturbances d/t inability to receive dialysis from clotted L sided AV fistula. Will evaluate the need for temporary catherization for dialysis. Vascular surgeon Eden Man production officer. PMD Dr. Yen. Coding Quality Coordinator Dr. eHrzog ED Course: CBC, CMP, Cardiac Pr. EKG, CXR 06/04/17 08:58 Dr. Weiner reports that he is not production officer. Dr. Tenorio not avaliable. 06/04/17 09:12 EKG: NSR with absent NIGEL, STD, or TWI. T waves non peaked. P waves nml, and normal QRS,MT interval duration. CXR: Unreamrkable 06/04/17 09:[address] Man answering service. 06/04/17 09:32 Dr. Man states that if pt. potassium is wnl, then she can follow up with him Tuesday ( 06/06/16) 06/04/17 09:33 CBC: Unremarkable 06/04/17 09:56 Dr. Celestin states that if pt. labs return and wnl he agrees with Dr. Man f/u on Tuesday. 06/04/17 10:45 Potassium 5.4 ( 3-4) BUN/Cr: 62/5.4 06/04/17 11:[address] manuel pt. is safe to go to dialysis on Tuesday. 30 mg Kaexylate. 06/04/17 11:33 Pt. stable for d/c with return precautions. Advsied to f/u with Dr. Man and then dialysis on Tuesday. *DC/Admit/Observation/Transfer Diagnosis at time of Disposition: Clotted renal dialysis AV graft Qualifiers: Encounter type: subsequent encounter Qualified Code(s): T82.868D - Thrombosis due to vascular prosthetic devices, implants and grafts, subsequent encounter - Discharge Dispostion Disposition: HOME Condition at time of disposition: Stable Admit: No - Referrals Referrals: Anila Man MD [Staff Physician] - Fawad Manuel MD [Staff Physician] - - Patient Instructions Printed Discharge Instructions: DI for AV Fistula or Graft Declotting Additional Instructions: Please return to the emergency department with any new or worsening symptoms or concerns. Please follow up with your Dr. Man on Tuesday ( 06/06/17) for clotted AV graft. Please present to dialysis on Tuesday ( 06/06/17). - Post Discharge Activity - Attestations Physician Attestion: 06/04/17 09:35 I attest to the information provided in this note.
[2017-06-04 08:05] VITALS: BP 173/87; PULSE 83; TEMP 98.1; BMI 22.7
--- NOTE | 2017-06-04 08:15 | PDOC ---
Attending Attestation - Resident Resident Name: Orville Fitzpatrick - ED Attending Attestation I have performed the following: I have examined & evaluated the patient, The case was reviewed & discussed with the resident, I agree w/resident's findings & plan, Exceptions are as noted - HPI HPI: 06/04/17 08:15 77y F hx of HL, HTN, ESRD, membranous nephropathy, (dialysis T, Th, Sa, last dialysis Th), CAD, AVN presents with nonfuctioning graft - pt states she went to her dialsyis as usual and was told her graft was nonfuctioning. pt is otherwise asypmtomatic - denies any cp, sob, palptiations, n/v, abd pain, dizziness, fever/chlils. states that she last had this problem a month ago that was cleared by dr. Aleman. GENERAL: The patient is awake, alert, and fully oriented, Nontoxic - in no acute distress. HEAD: Normocephalic, atraumatic. EYES: extraocular movements intact, sclera anicteric, conjunctiva clear. ENT: Normal voice, Moist mucous membranes. NECK: Normal range of motion, supple LUNGS: Breath sounds equal, clear to auscultation bilaterally. No wheezes, no rhonchi, no rales. HEART: Regular rate and rhythm, normal S1 and S2 without murmur, rub or gallop. ABDOMEN: Soft, nontender, normoactive bowel sounds. No guarding, no rebound. . No CVA tenderness EXTREMITIES: graft in the RUE without thrill, Normal range of motion, trace edema. NEUROLOGICAL: No facial assymetry, Normal speech, PSYCH: Normal mood, normal affect. SKIN: Warm, Dry, normal turgor, will ck labs, ekg to r/o hyper K will dw vascular regarding dispo - Physicial Exam PE: 06/05/17 13:38 see above - Medical Decision Making pts labs reviewed noted for borderline K case was dw dr. Manuel (renal) - agrees that pt can get some kayexalate, fu with vascular for revascularization of graft and then dialysis on tuesday diet instructions given strict return precautions were discussed for signs of fluid overload
[2017-06-04 09:10] LABS: BASO % 0.7 % (0-2.0); EOS % 2.3 % (0-4.5); HEMATOCRIT 44.2 % (32.4-45.2); HEMOGLOBIN 14.4 GM/dL (10.7-15.3); LYMPH % 31.6 % (8-40); MCH 33.1 pg (25.7-33.7); MCHC 32.6 g/dl (32.0-36.0); MEAN CELL VOLUME 101.3 fl (80-96); MEAN PLT VOLUME 8.4 fl (7.5-11.1); MONO % 9.4 % (3.8-10.2); PLATELET COUNT 246 K/MM3 (134-434); RBC 4.36 M/mm3 (3.60-5.2); RDW 16.5 % (11.6-15.6); WHITE BLOOD COUNT 6.6 K/mm3 (4.0-10.0)
[2017-06-04 09:26] LABS: INR 0.99 (0.82-1.09); PROTHROMBIN TIME (PATIENT) 11.2 SEC (9.98-11.88)
[2017-06-04 09:56] LABS: URINE APPEARANCE CLEAR; URINE BILIRUBIN NEGATIVE (<2.0 mg/dL); URINE BLOOD NEGATIVE (NEGATIVE); URINE COLOR LTYELLOW; URINE GLUCOSE (UA) NEGATIVE (NEGATIVE); URINE KETONE NEGATIVE (NEGATIVE); URINE LEUK ESTERASE NEGATIVE (NEGATIVE); URINE NITRITE NEGATIVE (NEGATIVE); URINE UROBILINOGEN NEGATIVE mg/dL (0.2-1.0)
[2017-06-04 10:06] LABS: ALBUMIN 3.7 g/dl (3.4-5.0); ANION GAP 10 (8-16); BLOOD UREA NITROGEN 62 mg/dL (7-18); CALCIUM 9.1 mg/dL (8.5-10.1); CHLORIDE 103 mmol/L (98-107); CO2 25 mmol/L (21-32); GLUCOSE,RANDOM 80 mg/dL (74-106); SODIUM 138 mmol/L (136-145)
[2017-06-04 10:10] LABS: ALK PHOS 67 U/L (45-117); BILIRUBIN,TOTAL 0.2 mg/dL (0.2-1.0); CREATININE 5.4 mg/dL (0.55-1.02); SGPT/ALT 17 U/L (12-78); TOT PROT 7.9 g/dl (6.4-8.2)
[2017-06-04 10:20] LABS: POTASSIUM 5.2 mmol/L (3.5-5.1); SGOT/AST 20 U/L (15-37)
[2017-06-04 10:42] LABS: EPI CELLS RARE /HPF (FEW); URINE PROTEIN 1+ (NEGATIVE)
[2017-06-04] MEDS ORDERED: SODIUM POLYSTYRENE SULFONATE 15 GM/60 ML BOTTLE PO ONE (11:19)
[2017-06-04] MEDS ORDERED: SODIUM POLYSTYRENE SULFONATE 15 GM/60 ML BOTTLE ONE (11:35)
--- NOTE | 2017-06-04 11:35 | EKG ---
Test Reason : Blood Pressure : / mmHG Vent. Rate : 082 BPM Atrial Rate : 082 BPM P-R Int : 168 ms QRS Dur : 082 ms QT Int : 390 ms P-R-T Axes : 058 027 043 degrees QTc Int : 455 ms NORMAL SINUS RHYTHM POSSIBLE LEFT ATRIAL ENLARGEMENT BORDERLINE ECG WHEN COMPARED WITH ECG OF 23-APR-2017 09:19, NO SIGNIFICANT CHANGE WAS FOUND Confirmed by JEY TAYLOR, DENISE ([id number]) on 06/04/2017 11:34:49 AM Referred By: Confirmed By:DENISE HKANNA MD
== END 2017-06-04 12:24 | disposition home or self-care (01) ==
LOC: JER 07:47
DX: T82.898A Other specified complication of vascular prosthetic devices, implants and grafts, initial encounter (principal); Y83.8 Other surgical procedures as the cause of abnormal reaction of the patient, or of later complication, without mention of misadventure at the time of the procedure; Y92.89 Other specified places as the place of occurrence of the external cause; E87.5 Hyperkalemia; I25.10 Atherosclerotic heart disease of native coronary artery without angina pectoris; I13.11 Hypertensive heart and chronic kidney disease without heart failure, with stage 5 chronic kidney disease, or end stage renal disease; N18.6 End stage renal disease; Z99.2 Dependence on renal dialysis; Z95.5 Presence of coronary angioplasty implant and graft; E78.00 Pure hypercholesterolemia, unspecified; M87.152 Osteonecrosis due to drugs, left femur; M87.151 Osteonecrosis due to drugs, right femur; T38.0X5A Adverse effect of glucocorticoids and synthetic analogues, initial encounter
CPT/HCPCS: 36415; 71045-TC-FY; 80053; 81003; 81015; 82550; 84484; 85025; 85610; 93005; 93010; 99283-25

== ENCOUNTER 2017-12-15 12:58 | Observation (INO) | payer OTHER, BC ==
--- NOTE | 2017-12-15 13:11 | PDOC ---
History of Present Illness - General Chief Complaint: Chest Pain Stated Complaint: CHEST PAIN Time Seen by Provider: 12/15/17 13:09 - History of Present Illness Initial Comments: 77yo F with ESRD on dialysis TuThSat, HTN presenting with chest pain and vomiting. Pain is midsternal, nonradiating, nonpleuritic, and nonpalpable. Patient describes it as a pressure that started three days ago, occurs for a couple minutes at a time, and about three times a day. Patient says she has not had anything like this before. She reports that she has never seen a health/safety job titles or had problems with her heart. No history of CO, but her son had an CO in his early 50s. Two episodes of nonbilious nonbloody vomiting, one yesterday and one today, both after drinking coffee. Patient is unable to tolerate food and so was sent by her primary care doctor to the ED. No fevers, chills, shortness of breath, or abdominal pain. Past History - Past Medical History Allergies/Adverse Reactions: Allergies Allergy/AdvReac Type Severity Reaction Status Date / Time No Known Allergies Allergy Verified 12/15/17 13:32 Home Medications: Ambulatory Orders Diltiazem "Cd" [Tiazac] 420 mg PO DAILY 10/14/11 Rabeprazole Sodium [Aciphex] 20 mg PO DAILY #0 tablet. 10/18/11 Losartan Potassium 50 mg PO DAILY 06/07/13 Vitamin B Comp W-C [Nephro-Marquis -] 1 tablet PO DAILY 08/31/16 Metoclopramide HCl [Reglan] 10 mg PO TID 04/23/17 Hydralazine HCl 50 mg PO BID 06/04/17 Anemia: Yes Cardiac Disorders: (CAD) CVA: No COPD: No Diabetes: No Dialysis: Yes ([id number]) Disorders: Yes (acute renal failure, membraneous nephropathy) HTN: Yes Hypercholesterolemia: Yes - Surgical History Abdominal Surgery: No Cardiac Surgery: No GI Surgery: No Orthopedic Surgery: Yes (Left Hip) - Immunization History Immunization Up to Date: Yes - Suicide/Smoking/Psychosocial Hx Smoking Status: No Smoking History: Never smoked Have you smoked in the past 12 months: No Number of Cigarettes Smoked Daily: 0 If you are a former smoker, when did you quit?: no Hx Alcohol Use: No Drug/Substance Use Hx: No Substance Use Type: None Hx Substance Use Treatment: No Review of Systems - Review of Systems Comments:: Constitutional: no fever, no chills HEENT: no throat pain, no dysphagia Cardiovascular: +chest pain, no palpitations Respiratory: no cough, no shortness of breath Gastrointestinal: no abdominal pain, no nausea, +vomiting, no diarrhea, no constipation Genitourinary: no dysuria, no frequency Musculoskeletal: no myalgia, no arthralgia Skin: no rash, no itching Neurologic: no headache, no dizziness *Physical Exam - Physical Exam Comments: General: Awake, alert, and fully oriented, in no acute distress Head: no signs of trauma Eyes: EOMI, sclera anicteric ENT: Moist mucus membranes Neck: Normal ROM, supple Lungs: Lungs clear, Normal breath sounds Cardio: Regular rhythm, S1 and S2 present Abdomen: Soft, nontender. No guarding, no rebound, no masses Extremities: Normal range of motion, Distal pulses present SKIN: Warm, Dry, normal turgor Neurologic: Cranial nerves II through XII grossly intact. Normal speech ED Treatment Course - LABORATORY CBC & Chemistry Diagram: 12/15/17 14:22 12/15/17 14:20 Medical Decision Making - Medical Decision Making 77yo F with ESRD on dialysis TuThSat, HTN presenting with chest pain and vomiting. Pain is midsternal, nonradiating, nonpleuritic, and nonpalpable. -Labs: WBC=10.2 -EKG, rate 114, QTc 446, sinus -Imaging -Discussed case with Dr. Felix who accepted patient for admission. Dr. Harmon requested for consults to be put in for GI, Dr. Enriquez, and Renal, Dr. Herzog. *DC/Admit/Observation/Transfer Diagnosis at time of Disposition: Chest pain Qualifiers: Chest pain type: other chest pain Qualified Code(s): R07.89 - Other chest pain Vomiting Qualifiers: Vomiting type: unspecified - Discharge Dispostion Condition at time of disposition: Stable Decision to Admit order: Yes - Referrals - Patient Instructions - Post Discharge Activity
[2017-12-15 14:36] LABS: BASO % 0.3 % (0-2.0); EOS % 0.7 % (0-4.5); HEMATOCRIT 43.7 % (32.4-45.2); HEMOGLOBIN 13.8 GM/dL (10.7-15.3); LYMPH % 21.7 % (8-40); MCH 30.2 pg (25.7-33.7); MCHC 31.6 g/dl (32.0-36.0); MEAN CELL VOLUME 95.6 fl (80-96); MEAN PLT VOLUME 7.2 fl (7.5-11.1); MONO % 14.2 % (3.8-10.2); NEUT % 63.1 % (42.8-82.8); PLATELET COUNT 214 K/MM3 (134-434); RBC 4.57 M/mm3 (3.60-5.2); RDW 16.6 % (11.6-15.6); WHITE BLOOD COUNT 10.2 K/mm3 (4.0-10.0)
--- NOTE | 2017-12-15 14:49 | PDOC ---
Attending Attestation - HPI HPI: 12/15/17 15:47 The patient is a 77-year-old female, with a past medical history of HTN, ESRD 2/ 2 membranous nephropathy ( Dialysis ,, ), NSTEMI 2014 cardiac cath, AVN both hips d/t steroid use who presents to the ED with 3 days of chest pain. She describes the chest pain as constant, 1-2/10 in severity, nonradiating, nonpleuritic in nature. She also reports having 2 episodes of vomiting since yesterday after drinking coffee; nonbloody, nonbilious. The patient denies any fevers, chills, cough, diarrhea, or abdominal pain. Denies any chest pain or shortness of breath. Denies any urinary symptoms. Allergies: NKA Social History: None reported. Surgical History: Left hip surgery. - Physicial Exam PE: 12/15/17 15:48 Vitals: Triage Vital signs reviewed General Appearance: no acute distress, well nourished well developed, Head: Atraumatic, normocephalic Eyes: Pupils equal reactive round, extraocular movement intact Ears: TM's normal bilaterally; Nose: Nares patent bilaterally;no nasal congestion Throat: Posterior oropharynx without erythema, mucous membranes moist, Neck: Supple;No Nuchal rigidity Chest Wall: Nontender Cardiac: Regular rate and rhythm, no murmurs, no rubs, no gallops, Lungs: Clear to auscultation bilateral, good air movement bilaterally, Abdomen: Soft, nondistended, normal bowel sounds, nontender to palpation Rectal: Exam deferred Extremities: Full range of motion to all extremities, no cyanosis, clubbing, or edema Skin: Warm and dry, no rashes or lesions, no petechiae Neuro: AOX3; Cranial Nerves 2-12 grossly intact, Strength intact to all extremities, Sensation intact to all extremities Psych: normal mood, normal affect <Elizabeth Bay - Last Filed: 12/15/17 15:48> - Resident Resident Name: Patricia Benitez - ED Attending Attestation I have performed the following: I have examined & evaluated the patient, The case was reviewed & discussed with the resident, I agree w/resident's findings & plan, Exceptions are as noted - Medical Decision Making 12/15/17 16:29 Atypical chest discomfort heart score for first troponin negative We'll observe for further cardiac management. <Quincy Garcias - Last Filed: 12/15/17 16:31> Heart Score/ECG Review - History History: Slightly suspicious - Electrocardiogram EKG: Normal - Age Age: >/= 65 - ECG Impressions Comment:: 12/15/17 16:30 EKG performed at 1331 demonstrates sinus tachycardia no ST elevations or T-wave inversions. <Quincy Garcias - Last Filed: 12/15/17 16:31> Attestations - Attestations 12/15/17 15:48 Documentation prepared by Elizabeth Bay, acting as certified medical transcriptionist for Quincy Garcias MD. <Elizabeth Bay - Last Filed: 12/15/17 15:48>
[2017-12-15 15:09] LABS: ALBUMIN 3.5 g/dl (3.4-5.0); ALK PHOS 70 U/L (45-117); ANION GAP 8 MMOL/L (8-16); BILIRUBIN,TOTAL 0.3 mg/dL (0.2-1); BLOOD UREA NITROGEN 23 mg/dL (7-18); CALCIUM 8.6 mg/dL (8.5-10.1); CHLORIDE 99 mmol/L (98-107); CO2 27 mmol/L (21-32); GLUCOSE,RANDOM 89 mg/dL (74-106); POTASSIUM 4.2 mmol/L (3.5-5.1); SGOT/AST 12 U/L (15-37); SGPT/ALT 18 U/L (13-61); SODIUM 134 mmol/L (136-145); TOT PROT 7.8 g/dl (6.4-8.2)
[2017-12-15 15:26] LABS: INR 1.03 (0.83-1.09); PROTHROMBIN TIME (PATIENT) 12.1 SEC (9.7-13.0)
--- NOTE | 2017-12-15 15:36 | EKG ---
Test Reason : Blood Pressure : / mmHG Vent. Rate : 114 BPM Atrial Rate : 114 BPM P-R Int : 162 ms QRS Dur : 066 ms QT Int : 324 ms P-R-T Axes : 059 030 044 degrees QTc Int : 446 ms SINUS TACHYCARDIA OTHERWISE NORMAL ECG WHEN COMPARED WITH ECG OF 04-JUN-2017 07:59, NO SIGNIFICANT CHANGE WAS FOUND Confirmed by IDA CEDILLO MD ([id number]) on 12/15/2017 3:36:20 PM Referred By: Confirmed By:IDA CEDILLO MD
--- NOTE | 2017-12-15 17:41 | CON.GI ---
Consult Consult Specialty:: GI Referred by:: Hospitalist Service Reason for Consultation:: Vomiting - History of Present Illness Chief Complaint: "I feel strange in my chest" History of Present Illness: 77F admitted through [facility] for evaluation of chest pain and vomiting. She explained to me that yesterday, she drank brown coffee and subsequently vomited. She drank coffee and a corn muffin this morning and again vomited. Prior to this she denied any focal GI complaints. She denies associated dysphagia, early sayiety, abdominal pain, change in bowel habits, food fear, fevers/chills. She states that she has episodes of chest pressure two days ago and again yesterday. She believes that she had a colonoscopy with Dr. Diaz in the past. She was uncertain if she ever had an upper endoscopy. There is no family history of colorectal cancer or other GI malignancy. Her home medication list includes ? standing reglan. A past H&P includes a diagnosis of frequent vomiting and GERD however gastroparesis is not mentioned. Ms. Burton denies recent vomiting prior to yesterday. - History Source History Provided By: Patient, Medical Record - Past Medical History Cardio/Vascular: Yes: CAD, HTN, Hyperlipdemia Gastrointestinal: Yes: Constipation, Peptic Ulcer Disease Renal/: Yes: Renal Failure (ESRD on HD TTS), Hemodialysis Psych: Yes: Depression - Past Surgical History Past Surgical History: Yes: AV Fistula/Graft, Hernia Repair (umbilical, per the chart), Joint Replacement (Total left hip replacement) - Alcohol/Substance Use Hx Alcohol Use: No History of Substance Use: reports: None - Smoking History Smoking history: Never smoked Have you smoked in the past 12 months: No Aproximately how many cigarettes per day: 0 If you are a former smoker, when did you quit?: no - Social History Usual Living Arrangement: With Child ADL: Family Assistance Occupation: Homemaker Place of : Other ([place], came to [place]) History of Recent Travel: No Home Medications - Allergies Allergies/Adverse Reactions: Allergies Allergy/AdvReac Type Severity Reaction Status Date / Time No Known Allergies Allergy Verified 12/15/17 13:32 - Home Medications Home Medications: Ambulatory Orders Diltiazem "Cd" [Tiazac] 420 mg PO DAILY 10/14/11 Rabeprazole Sodium [Aciphex] 20 mg PO DAILY #0 tablet. 10/18/11 Losartan Potassium 50 mg PO DAILY 06/07/13 Vitamin B Comp W-C [Nephro-Marquis -] 1 tablet PO DAILY 08/31/16 Metoclopramide HCl [Reglan] 10 mg PO TID 04/23/17 Hydralazine HCl 50 mg PO BID 06/04/17 Family Disease History - Family Disease History Family Disease History: Other: Father (: age 75), Mother (: age 27), Son (2, healthy) Other Family History: No family history of colorectal cancer or other GI malignancy Review of Systems - Review of Systems Cardiovascular: reports: Chest Pain Respiratory: denies: Cough, SOB Gastrointestinal: reports: Vomiting. denies: Abdominal Pain, Constipation, Diarrhea, Melena, Rectal Bleeding, Vomiting Blood Physical Exam-GI Vital Signs: Vital Signs Temperature 98.0 F 12/15/17 14:18 Pulse Rate 104 H 12/15/17 16:45 Respiratory Rate 16 12/15/17 16:45 Blood Pressure 149/81 12/15/17 16:45 O2 Sat by Pulse Oximetry (%) 97 12/15/17 16:45 Constitutional: Yes: Calm Eyes: No: Sclera Icterus Cardiovascular: Yes: Tachycardia, Murmur (2/6 systolic murmur) Respiratory: Yes: CTA Bilaterally Gastrointestinal Inspection: No: Distention ...Auscultate: Yes: Normoactive Bowel Sounds ...Palpate: No: Hepatomegaly, Splenomegaly, Tenderness ...Percussion: No: Tympanitic ...Rectal Exam: Yes: Deferred (Refused by patient) Edema: No (No LE edema) Neurological: Yes: Alert Labs: CBC, BMP 12/15/17 14:22 12/15/17 14:20 INR, PTT INR 1.03 (0.83-1.09) 12/15/17 14:22 Hepatic Panel Total Bilirubin 0.3 mg/dL (0.2-1) 12/15/17 14:20 AST 12 U/L (15-37) L 12/15/17 14:20 ALT 18 U/L (13-61) 12/15/17 14:20 Alkaline Phosphatase 70 U/L (45-117) 12/15/17 14:20 Albumin 3.5 g/dl (3.4-5.0) 12/15/17 14:20 Problem List - Problems (1) Vomiting Assessment/Plan: No further vomiting. From a prior H&P by Dr. Yen, this is listed as a chronic problem Would advise: Trial of clears and advance as tolerated to low fiber Evaluation of the chest pressure episodes she describes per primary team. ? atypical presentation of cardiac disease Unclear how long she has been on standing reglan. This should be tapered.We discussed upper endoscopy when acute issues resolved. We discussed potential risks of the procedure like but not limited to bleeding, perforation requiring surgery to repair, infection and sedation medcation effects all of which could be potentially life threatening. She refused procedure at this time. May benefit from referral to a motility specialty center such as [facility] if she does indeed have unexplained chronic vomiting. Code(s): R11.10 - VOMITING, UNSPECIFIED
--- NOTE | 2017-12-15 18:42 | HP ---
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 HLD. Depression. HTN. 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 Umbilical hernia repair Frequent vomiting, GERD. Episodes of vaso-vagal syncope. History Source: Patient, Medical Record - Past Medical History Cardiovascular: Yes: CAD, HTN, Hyperlipdemia Gastrointestinal: Yes: Constipation, Peptic Ulcer Disease Renal/: Yes: Renal Failure (ESRD on HD TTS), Hemodialysis Heme/Onc: Yes: Anemia (of ESRD) Psych: Yes: Depression - Past Surgical History Past Surgical History: Yes: AV Fistula/Graft, Hernia Repair (umbilical, per the chart), Joint Replacement (Total left hip replacement) - Smoking History Smoking history: Never smoked Have you smoked in the past 12 months: No Aproximately how many cigarettes per day: 0 If you are a former smoker, when did you quit?: no - Alcohol/Substance Use Hx Alcohol Use: No History of Substance Use: reports: None - Social History ADL: Family Assistance Occupation: Homemaker History of Recent Travel: No Home Medications - Allergies Allergies/Adverse Reactions: Allergies Allergy/AdvReac Type Severity Reaction Status Date / Time No Known Allergies Allergy Verified 12/15/17 13:32 - Home Medications Home Medications: Ambulatory Orders Diltiazem "Cd" [Tiazac] 420 mg PO DAILY 10/14/11 Rabeprazole Sodium [Aciphex] 20 mg PO DAILY #0 tablet. 10/18/11 Losartan Potassium 50 mg PO DAILY 06/07/13 Vitamin B Comp W-C [Nephro-Marquis -] 1 tablet PO DAILY 08/31/16 Metoclopramide HCl [Reglan] 10 mg PO TID 04/23/17 Hydralazine HCl 50 mg PO BID 06/04/17 Family Disease History - Family Disease History Family Disease History: Diabetes: Son, Heart Disease: Son, Other: Father (: age 75), Mother (: age 27), Son Other Family History: No family history of colorectal cancer or other GI malignancy Review of Systems - Review of Systems Constitutional: denies: No Symptoms, Chills Eyes: reports: No Symptoms HENT: denies: Difficult Swallowing Neck: reports: No Symptoms Cardiovascular: reports: Chest Pain. denies: Edema Respiratory: denies: Cough Gastrointestinal: reports: Nausea, Vomiting Breasts: reports: No Symptoms Reported Musculoskeletal: reports: No Symptoms Integumentary: reports: No Symptoms Neurological: reports: Tremors, Unsteady Gait Endocrine: reports: No Symptoms Hematology/Lymphatic: reports: No Symptoms Psychiatric: reports: Anxiety, Depression Physical Examination Vital Signs: Vital Signs Temperature 98.0 F 12/15/17 14:18 Pulse Rate 104 H 12/15/17 16:45 Respiratory Rate 16 12/15/17 16:45 Blood Pressure 149/81 12/15/17 16:45 O2 Sat by Pulse Oximetry (%) 97 12/15/17 16:45 Constitutional: Yes: Anxious, Cachectic, Mild Distress Eyes: Yes: Conjunctiva Clear, EOM Intact, PERRL HENT: Yes: Atraumatic, Normocephalic. No: Drooling Neck: Yes: WNL Cardiovascular: Yes: Regular Rate and Rhythm Respiratory: Yes: Regular, CTA Bilaterally Gastrointestinal: Yes: Normal Bowel Sounds, Soft. No: Abdomen, Obese, Palpable Mass, Tenderness, Tenderness, Epigastrium ...Rectal Exam: Yes: Deferred Renal/: Yes: Other (ESRD on HD) Breast(s): Yes: WNL Extremities: No: Amputation, Calf Tenderness Edema: No Integumentary: Yes: WNL Neurological: Yes: Alert, Oriented. No: Aphasia ...Motor Strength: WNL Psychiatric: Yes: WNL Labs: CBC, BMP 12/15/17 14:22 12/15/17 14:20 Imaging - Results Chest X-ray: Report Reviewed X-ray: Report Reviewed EKG: Report Reviewed Problem List - Problems (1) Chest pain Assessment/Plan: Previous GA Chest pain is now probably associated with vomiting Cardiology f/u Code(s): R07.9 - CHEST PAIN, UNSPECIFIED Qualifiers: Chest pain type: other chest pain Qualified Code(s): R07.89 - Other chest pain; R07.8 - Other chest pain (2) Vomiting Assessment/Plan: GI consult appreciated Start clear fluids and observe Code(s): R11.10 - VOMITING, UNSPECIFIED Qualifiers: Vomiting type: unspecified (3) ESRD on dialysis Assessment/Plan: Nephrology f/u Continue HD Code(s): N18.6 - END STAGE RENAL DISEASE; Z99.2 - DEPENDENCE ON RENAL DIALYSIS
[2017-12-15] MEDS ORDERED: ONDANSETRON 4 MG/2 ML VIAL IVPB PRN (19:00)
[2017-12-15] MEDS ORDERED: morphine CARPU-JECT 4 MG/1 ML DISP.SYRIN IVPUSH ONE (21:39)
[2017-12-15] MEDS: hydrALAZINE HCL 50 MG TABLET (FP) PO SCH (22:16)
[2017-12-15 23:22] VITALS: BMI 19.9
[2017-12-16 07:17] LABS: BASO % 0.5 % (0-2.0); EOS % 1.7 % (0-4.5); HEMATOCRIT 43.1 % (32.4-45.2); HEMOGLOBIN 13.8 GM/dL (10.7-15.3); LYMPH % 42.7 % (8-40); MCH 30.3 pg (25.7-33.7); MEAN CELL VOLUME 94.8 fl (80-96); MEAN PLT VOLUME 7.6 fl (7.5-11.1); MONO % 12.9 % (3.8-10.2); NEUT % 42.2 % (42.8-82.8); PLATELET COUNT 222 K/MM3 (134-434); RBC 4.54 M/mm3 (3.60-5.2); RDW 16.7 % (11.6-15.6); WHITE BLOOD COUNT 8.8 K/mm3 (4.0-10.0)
[2017-12-16 07:55] LABS: ALBUMIN 3.3 g/dl (3.4-5.0); ALK PHOS 63 U/L (45-117); ANION GAP 12 MMOL/L (8-16); BILIRUBIN,TOTAL 0.5 mg/dL (0.2-1); BLOOD UREA NITROGEN 39 mg/dL (7-18); CHLORIDE 98 mmol/L (98-107); CO2 24 mmol/L (21-32); CREATININE 4.6 mg/dL (0.55-1.3); GLUCOSE,RANDOM 87 mg/dL (74-106); MAGNESIUM 2.3 mg/dL (1.8-2.4); POTASSIUM 4.4 mmol/L (3.5-5.1); SGOT/AST 15 U/L (15-37); SGPT/ALT 19 U/L (13-61); SODIUM 134 mmol/L (136-145); TOT PROT 7.5 g/dl (6.4-8.2)
--- NOTE | 2017-12-16 08:27 | PN ---
Progress Note (short form) - Note Progress Note: Was able to tolerate clear liquids yesterday, Feels better today Refused EGD yesterday Vital Signs Temp 97.9 F 12/16/17 06:00 Pulse 93 H 12/16/17 06:00 Resp 20 12/16/17 06:00 BP 110/56 L 12/16/17 06:00 Pulse Ox 97 12/15/17 22:48 Intake & Output 12/15/17 12/15/17 12/16/17 11:59 23:59 11:59 Weight 102 lb 1 oz Other: Voiding Method Toilet # Unmeasured Voids Void 0 Bowel Movement No Height 5 ft Body Mass Index (BMI) 19.9 Lungs clear Heart S1S2 regular Abdomen soft, NT Ext-no CCE Plan Advance the diet If tolerates D/C home GI f/u Spoke to kye Mathew Laboratory Results - last 24 hr 12/15/17 12/15/17 12/15/17 14:20 14:22 14:22 WBC 10.2 H RBC 4.57 Hgb 13.8 Hct 43.7 MCV 95.6 MCH 30.2 MCHC 31.6 L RDW 16.6 H Plt Count 214 MPV 7.2 L D Absolute Neuts (auto) 6.4 Neutrophils % 63.1 Lymphocytes % 21.7 D Monocytes % 14.2 H Eosinophils % 0.7 Basophils % 0.3 Nucleated RBC % 0 PT with INR 12.10 INR 1.03 Sodium 134 L Potassium 4.2 Chloride 99 Carbon Dioxide 27 Anion Gap 8 BUN 23 H Creatinine 3.0 H Creat Clearance w eGFR 15.05 Random Glucose 89 Calcium 8.6 Phosphorus Magnesium Total Bilirubin 0.3 AST 12 L ALT 18 Alkaline Phosphatase 70 Creatine Kinase 74 Troponin I < 0.02 Total Protein 7.8 Albumin 3.5 12/15/17 12/16/17 12/16/17 21:00 06:30 06:30 WBC 8.8 RBC 4.54 Hgb 13.8 Hct 43.1 MCV 94.8 MCH 30.3 MCHC 32.0 RDW 16.7 H Plt Count 222 MPV 7.6 Absolute Neuts (auto) 3.7 Neutrophils % 42.2 L D Lymphocytes % 42.7 H D Monocytes % 12.9 H Eosinophils % 1.7 D Basophils % 0.5 Nucleated RBC % 0 PT with INR INR Sodium 134 L Potassium 4.4 Chloride 98 Carbon Dioxide 24 Anion Gap 12 BUN 39 H Creatinine 4.6 H Creat Clearance w eGFR 9.19 Random Glucose 87 Calcium 9.0 Phosphorus 6.0 H Magnesium 2.3 Total Bilirubin 0.5 AST 15 ALT 19 Alkaline Phosphatase 63 Creatine Kinase 82 Troponin I 0.02 Total Protein 7.5 Albumin 3.3 L Problem List - Problems (1) Chest pain Code(s): R07.9 - CHEST PAIN, UNSPECIFIED Qualifiers: Chest pain type: other chest pain Qualified Code(s): R07.89 - Other chest pain; R07.8 - Other chest pain (2) Vomiting Code(s): R11.10 - VOMITING, UNSPECIFIED Qualifiers: Vomiting type: unspecified (3) ESRD on dialysis Code(s): N18.6 - END STAGE RENAL DISEASE; Z99.2 - DEPENDENCE ON RENAL DIALYSIS
--- NOTE | 2017-12-16 08:30 | DS ---
Physical Examination Vital Signs: Vital Signs Temperature 97.9 F 12/16/17 06:00 Pulse Rate 93 H 12/16/17 06:00 Respiratory Rate 20 12/16/17 06:00 Blood Pressure 110/56 L 12/16/17 06:00 O2 Sat by Pulse Oximetry (%) 97 12/15/17 22:48 Constitutional: Yes: No Distress, Anxious Eyes: Yes: Conjunctiva Clear, EOM Intact HENT: Yes: Atraumatic, Normocephalic Neck: Yes: Supple, Trachea Midline Cardiovascular: Yes: Regular Rate and Rhythm. No: Bradycardia, Tachycardia Respiratory: Yes: Regular, CTA Bilaterally Gastrointestinal: Yes: Normal Bowel Sounds, Soft. No: Abdomen, Obese, Ascites ...Rectal Exam: Yes: Deferred Renal/: Yes: Other (ESRD) Musculoskeletal: Yes: Other (AVN hips) Edema: No Integumentary: Yes: WNL ...Motor Strength: WNL Labs: CBC, BMP 12/16/17 06:30 12/16/17 06:30 Discharge Summary Reason For Visit: CHEST PAIN, VOMITTING Current Active Problems Chest pain (Acute) Vomiting (Acute) Condition: Stable - Instructions Disposition: HOME - Home Medications Comprehensive Discharge Medication List: Ambulatory Orders Diltiazem "Cd" [Tiazac] 420 mg PO DAILY 10/14/11 Rabeprazole Sodium [Aciphex] 20 mg PO DAILY #0 tablet. 10/18/11 Losartan Potassium 50 mg PO DAILY 06/07/13 Vitamin B Comp W-C [Nephro-Marquis -] 1 tablet PO DAILY 08/31/16 Hydralazine HCl 50 mg PO BID 06/04/17
[2017-12-16] MEDS ORDERED: PT OWN MED DRAWER 7, Y5N ONE (09:52)
[2017-12-16] MEDS ORDERED: LOSARTAN POTASSIUM 50 MG TABLET (FP) PO SCH (10:00)
[2017-12-16] MEDS ORDERED: PANTOPRAZOLE 40 MG TABLET (FP) PO SCH (10:00)
[2017-12-16] MEDS: hydrALAZINE HCL 50 MG TABLET (FP) PO SCH (10:00)
[2017-12-16] MEDS ORDERED: DILTIAZEM CD PO SCH ×2 (10:00→12:15)
[2017-12-16] MEDS ORDERED: VITAMIN B COMP W-C 1 EA TABLET PO SCH (10:00)
[2017-12-16 10:02] VITALS: BP 131/81; PULSE 110; TEMP 98
--- NOTE | 2017-12-16 11:38 | CONSULT ---
Consult - text type - Consultation Consultation Note: Renal Consult for ESRD on HD This is a 77 year old woman with hx of ESRD on HD, Membranous Nephropathy, Hypertension who presented with complaints of N/V and chest discomfort. pt reports vomiting with liquids. No Abd pain. No fever or chills. HaD CP, now resolved. Now tolerated food and liquids. Refused EGD. PMhx: as above Allergies: NDKA Family Hx: NC Social hx: No T/A/D ROS: as per HPI Home Medications Medication Instructions Recorded Diltiazem "Cd" [Tiazac] 420 mg PO DAILY 10/14/11 Rabeprazole Sodium [Aciphex] 20 mg PO DAILY #0 tablet. 10/18/11 Losartan Potassium 50 mg PO DAILY 06/07/13 Vitamin B Comp W-C [Nephro-Marquis -] 1 tablet PO DAILY 08/31/16 Hydralazine HCl 50 mg PO BID 06/04/17 Vital Signs Temperature 98 F 12/16/17 10:02 Pulse Rate 110 H 12/16/17 10:02 Respiratory Rate 20 12/16/17 10:02 Blood Pressure 131/81 12/16/17 10:02 O2 Sat by Pulse Oximetry (%) 97 12/16/17 08:27 Intake & Output 12/13/17 12/14/17 12/15/17 12/16/17 23:59 23:59 23:59 23:59 Intake Total 260 Balance 260 Weight 46.295 kg NAD awake and alert neck supple no JVD RRR No M/R CTA soft NT/ND no LE edema CBC, BMP 12/16/17 06:30 12/16/17 06:30 Current Medications Diltiazem HCl 120 mg/ (Diltiazem HCl 300 mg) 420 mg PO DAILY [facility] Hydralazine HCl (Apresoline -) 50 mg PO BID [facility] Last Admin: 12/16/17 10:00 Dose: 50 mg Losartan Potassium (Cozaar -) 50 mg PO DAILY [facility] Last Admin: 12/16/17 10:00 Dose: 50 mg Multivit/Ca Carb/B Cmplx/FA/Prenat (Nephro-Marquis -) 1 tablet PO DAILY [facility] Last Admin: 12/16/17 10:00 Dose: 1 tablet Ondansetron HCl (Zofran Injection) 8 mg IVPB Q6H PRN PRN Reason: NAUSEA Pantoprazole Sodium (Protonix -) 40 mg PO DAILY [facility] Last Admin: 12/16/17 10:00 Dose: 40 mg 77 year old woman with hx of ESRD on HD, Membranous Nephropathy, Hypertension who presented with complaints of N/V and chest discomfort. #ESRD on HD #N/V #Hypertension No indication for [employer] at the present time can resume HD tomorrow as outpatient N/V resolved, etiology uncertain GI follow up noted Continue present antihypertensives discharge planning as per primary Fawad Manuel DO
== END 2017-12-16 12:51 | disposition home or self-care (01) ==
LOC: JER 12:58 → INTOOBSV 15:04 → UNDOADMOB 15:04 → JERBED 15:04 → J5S 21:49
PROVIDERS: ADMIT Internal Medicine; ATTEND Internal Medicine
DX: R07.89 Other chest pain (principal); R11.10 Vomiting, unspecified; I12.0 Hypertensive chronic kidney disease with stage 5 chronic kidney disease or end stage renal disease; N18.6 End stage renal disease; Z99.2 Dependence on renal dialysis; D64.9 Anemia, unspecified; I25.10 Atherosclerotic heart disease of native coronary artery without angina pectoris; E78.5 Hyperlipidemia, unspecified; I25.2 Old myocardial infarction; Z98.61 Coronary angioplasty status
CPT/HCPCS: 36415; 71046-TC-FY; 74019-TC-FY; 80053; 82550; 83735; 84100; 84484; 85025; 85027; 85610; 93005; 93010; 99285-25; G0378

== ENCOUNTER 2021-01-21 07:23 | Emergency (ER) | payer OTHER, BC ==
[2021-01-21 07:39] VITALS: BP 129/77; PULSE 90; TEMP 98; BMI 21.7
== END 2021-01-21 10:00 | disposition home or self-care (01) ==
LOC: JER 07:23
DX: T82.590A Other mechanical complication of surgically created arteriovenous fistula, initial encounter (principal)
CPT/HCPCS: 99281-25

== ENCOUNTER 2021-01-24 06:44 | Inpatient (IN) | payer OTHER, BC ==
[2021-01-24 08:30] LABS: BASO % 0.5 % (0-2.0); EOS % 2.3 % (0-4.5); HEMATOCRIT 31.7 % (32.4-45.2); HEMOGLOBIN 10.6 GM/dL (10.7-15.3); LYMPH % 42.7 % (8-40); MCH 32.5 pg (25.7-33.7); MCHC 33.6 g/dl (32.0-36.0); MEAN CELL VOLUME 96.8 fl (80-96); MEAN PLT VOLUME 8.1 fl (7.5-11.1); MONO % 7.5 % (3.8-10.2); PLATELET COUNT 171 10^3/uL (134-434); RBC 3.27 M/mm3 (3.60-5.2); RDW 13.7 % (11.6-15.6); WHITE BLOOD COUNT 9.9 K/mm3 (4.0-10.0)
[2021-01-24 08:39] LABS: INR 0.96 (0.83-1.09); PROTHROMBIN TIME (PATIENT) 10.8 SEC (9.7-13.0)
[2021-01-24 08:42] LABS: ACTIVATED PTT 28.2 SECONDS (25.2-36.5)
[2021-01-24 08:50] LABS: CHLORIDE 104 mmol/L (98-107); SODIUM 140 mmol/L (136-145)
[2021-01-24 08:54] LABS: CALCIUM 8.6 mg/dL (8.5-10.1)
[2021-01-24 08:55] LABS: ALBUMIN 2.7 g/dl (3.4-5.0); ANION GAP 12 MMOL/L (8-16); BLOOD UREA NITROGEN 55.4 mg/dL (7-18); CO2 24 mmol/L (21-32); GLUCOSE,RANDOM 129 mg/dL (74-106)
[2021-01-24 08:58] LABS: CREATININE 5.1 mg/dL (0.55-1.3); SGOT/AST 17 U/L (15-37); SGPT/ALT 15 U/L (13-61)
[2021-01-24 08:59] LABS: TOT PROT 6.6 g/dl (6.4-8.2)
[2021-01-24 09:00] LABS: ALK PHOS 59 U/L (45-117); BILIRUBIN,TOTAL 0.4 mg/dL (0.2-1)
[2021-01-24 13:58] VITALS: BMI 20.5
[2021-01-24] MEDS: LOSARTAN POTASSIUM 50 MG TABLET PO SCH (14:25)
[2021-01-24] MEDS: hydrALAZINE HCL 50 MG TABLET (FP) PO SCH (22:49)
[2021-01-25] MEDS ORDERED: MIDAZOLAM HCL 2 MG/2 ML SINGLE DOSE VIAL ONE (08:26)
[2021-01-25] MEDS ORDERED: HEPARIN NA (PORCINE) 5,000 UNITS/ML 1ML VIAL ONE (08:27)
[2021-01-25] MEDS ORDERED: LIDOCAINE HCL 1%, 10 MG/ML (20ML VIAL) ONE (08:27)
[2021-01-25] MEDS ORDERED: VANCOMYCIN 1,000 MG VIAL (RESTRICTED TO ID ONLY) IVPB ONE (08:44)
[2021-01-25] MEDS ORDERED: LIDOCAINE HCL 1%, 10 MG/ML (20ML VIAL) INF ONE (10:15)
[2021-01-25] MEDS ORDERED: POVIDONE-IODINE OINTMENT 10% - 28.4 GM TUBE ONE (10:18)
[2021-01-25] MEDS ORDERED: PT OWN MED DRAWER 7, Y5N ONE ×2 (10:42→11:51)
[2021-01-25] MEDS ORDERED: PROMETHAZINE HCL 25 MG/1 ML VIAL IVPB PRN (10:43)
[2021-01-25] MEDS ORDERED: ONDANSETRON 4 MG/2 ML VIAL IVPUSH PRN ×2 (10:43→11:14)
[2021-01-25] MEDS ORDERED: ACETAMINOPHEN WITH CODEINE 300MG/30MG TABLET PO PRN (11:07)
[2021-01-25] MEDS: hydrALAZINE HCL 50 MG TABLET (FP) PO SCH ×3 (11:52→22:24)
[2021-01-25] MEDS: LOSARTAN POTASSIUM 50 MG TABLET PO SCH ×2 (11:52→11:56)
[2021-01-25 12:26] LABS: CALCIUM 8.6 mg/dL (8.5-10.1)
[2021-01-25 12:30] LABS: CREATININE 6.3 mg/dL (0.55-1.3)
[2021-01-25] MEDS ORDERED: SODIUM ZIRCONIUM CYCLOSILICATE (LOKELMA) 5 GM PACKET PO ONE (12:45)
[2021-01-25 13:00] LABS: BASO % 0.3 % (0-2.0); EOS % 1.2 % (0-4.5); HEMATOCRIT 25.3 % (32.4-45.2); HEMOGLOBIN 8.6 GM/dL (10.7-15.3); LYMPH % 26.9 % (8-40); MCHC 33.8 g/dl (32.0-36.0); MEAN CELL VOLUME 97.6 fl (80-96); MEAN PLT VOLUME 8.4 fl (7.5-11.1); MONO % 7.8 % (3.8-10.2); NEUT % 63.8 % (42.8-82.8); PLATELET COUNT 178 10^3/uL (134-434); RBC 2.59 M/mm3 (3.60-5.2); RDW 13.9 % (11.6-15.6); WHITE BLOOD COUNT 11.3 K/mm3 (4.0-10.0)
[2021-01-25] MEDS ORDERED: SODIUM CHLORIDE 250 ML IV PRN (13:12)
[2021-01-25 13:32] LABS: CALCIUM 8.5 mg/dL (8.5-10.1)
[2021-01-25 13:36] LABS: CREATININE 6.3 mg/dL (0.55-1.3)
[2021-01-26 09:45] LABS: HEMATOCRIT 20.6 % (32.4-45.2); HEMOGLOBIN 7.1 GM/dL (10.7-15.3); MCH 33.3 pg (25.7-33.7); MCHC 34.3 g/dl (32.0-36.0); MEAN CELL VOLUME 96.9 fl (80-96); MEAN PLT VOLUME 8.1 fl (7.5-11.1); PLATELET COUNT 180 10^3/uL (134-434); RBC 2.13 M/mm3 (3.60-5.2); RDW 13.6 % (11.6-15.6); WHITE BLOOD COUNT 10.9 K/mm3 (4.0-10.0)
[2021-01-26 09:58] LABS: CALCIUM 8.1 mg/dL (8.5-10.1)
[2021-01-26 10:02] LABS: CREATININE 6.1 mg/dL (0.55-1.3); PHOSPHOROUS 5.4 mg/dL (2.5-4.9)
[2021-01-26] MEDS: hydrALAZINE HCL 50 MG TABLET (FP) PO SCH (10:02)
[2021-01-26] MEDS: LOSARTAN POTASSIUM 50 MG TABLET PO SCH (10:02)
[2021-01-26] MEDS ORDERED: EPOETIN ALFA-EPBX 20,000 UNIT/ML VIAL SQ ONE (13:25)
[2021-01-26] MEDS ORDERED: IRON SUCROSE INJECTION 100 MG in SODIUM CHLORIDE 95 ML IVPB ONE (13:26)
[2021-01-27] MEDS ORDERED: PT OWN MED DRAWER 7, Y5N ONE (08:58)
[2021-01-27 09:22] LABS: BASO % 0.5 % (0-2.0); EOS % 1.5 % (0-4.5); HEMATOCRIT 22.5 % (32.4-45.2); HEMOGLOBIN 7.6 GM/dL (10.7-15.3); LYMPH % 35.3 % (8-40); MCH 32.4 pg (25.7-33.7); MCHC 33.8 g/dl (32.0-36.0); MEAN CELL VOLUME 96.1 fl (80-96); MONO % 12.8 % (3.8-10.2); NEUT % 49.9 % (42.8-82.8); PLATELET COUNT 179 10^3/uL (134-434); RBC 2.34 M/mm3 (3.60-5.2); RDW 13.6 % (11.6-15.6)
[2021-01-27] MEDS ORDERED: CINACALCET HCL 30 MG TAB (FP) PO SCH (10:00)
[2021-01-27] MEDS ORDERED: PATIENT'S OWN MEDICATION (NON-FORMULARY) (Sevelamer Hcl [Sevelamer Hcl] 800 MG Tablet) PO SCH (10:00)
[2021-01-27] MEDS ORDERED: SEVELAMER HCL 800 MG PO SCH (10:00)
[2021-01-27 10:05] LABS: BILIRUBIN,TOTAL 0.4 mg/dL (0.2-1)
[2021-01-27 10:06] LABS: ALBUMIN 2.6 g/dl (3.4-5.0)
[2021-01-27 10:10] LABS: CREATININE 4.9 mg/dL (0.55-1.3)
[2021-01-27 10:11] LABS: CALCIUM 8.9 mg/dL (8.5-10.1)
[2021-01-27 10:12] LABS: MAGNESIUM 2.4 mg/dL (1.8-2.4)
[2021-01-27 10:25] LABS: BLOOD UREA NITROGEN 40.9 mg/dL (7-18)
[2021-01-27 10:33] VITALS: TEMP 98.2
[2021-01-27 14:29] VITALS: BP 99/40; PULSE 96
== END 2021-01-27 17:55 | disposition home or self-care (01) | DRG 252 ==
LOC: JER 06:44 → JERBED 07:59 → J6S 13:01
PROVIDERS: ADMIT Internal Medicine; ATTEND Internal Medicine
PROC: 03CY0ZZ Extirpation of Matter from Upper Artery, Open Approach (ICD-10-PCS; 2021-01-25)
PROC: 03Q Upper Arteries, Repair (ICD-10-PCS; principal; 2021-01-25 08:00)
PROC: 5A1D70Z Performance of Urinary Filtration, Intermittent, Less than 6 Hours Per Day (ICD-10-PCS; 2021-01-26)
DX: T82.868A Thrombosis due to vascular prosthetic devices, implants and grafts, initial encounter (principal); N18.6 End stage renal disease; I12.0 Hypertensive chronic kidney disease with stage 5 chronic kidney disease or end stage renal disease; D62 Acute posthemorrhagic anemia; T82.7XXA Infection and inflammatory reaction due to other cardiac and vascular devices, implants and grafts, initial encounter; T82.838A Hemorrhage due to vascular prosthetic devices, implants and grafts, initial encounter; Y83.9 Surgical procedure, unspecified as the cause of abnormal reaction of the patient, or of later complication, without mention of misadventure at the time of the procedure; L08.9 Local infection of the skin and subcutaneous tissue, unspecified; Z99.2 Dependence on renal dialysis; I25.10 Atherosclerotic heart disease of native coronary artery without angina pectoris; G20 Parkinson's disease; E78.5 Hyperlipidemia, unspecified; D63.1 Anemia in chronic kidney disease
CPT/HCPCS: 36415; 80048; 80053; 82550; 83735; 84100; 84484; 85025; 85027; 85610; 85730; 86803; 86850; 86900; 86901; 87070; 87205; 87340; 88304-TC; 93005; 93010; 93930; 94760; 99281-25; 99285-25; C9803; J1644; J1756; U0003; U0005

== ENCOUNTER 2021-04-04 07:40 | Emergency (ER) | payer OTHER, BC ==
[2021-04-04 08:10] VITALS: TEMP 98; BMI 20.5
[2021-04-04 09:05] LABS: BASO % 0.7 % (0-2.0); EOS % 2.1 % (0-4.5); HEMATOCRIT 39.3 % (32.4-45.2); HEMOGLOBIN 13.1 GM/dL (10.7-15.3); LYMPH % 26.2 % (8-40); MCH 31.8 pg (25.7-33.7); MCHC 33.3 g/dl (32.0-36.0); MEAN CELL VOLUME 95.5 fl (80-96); MEAN PLT VOLUME 7.6 fl (7.5-11.1); MONO % 11.1 % (3.8-10.2); NEUT % 59.9 % (42.8-82.8); PLATELET COUNT 194 10^3/uL (134-434); RBC 4.11 M/mm3 (3.60-5.2); WHITE BLOOD COUNT 5.8 K/mm3 (4.0-10.0)
[2021-04-04 09:16] LABS: INR 0.94 (0.83-1.09); PROTHROMBIN TIME (PATIENT) 10.8 SEC (9.7-13.0)
[2021-04-04 09:19] LABS: ACTIVATED PTT 32.6 SECONDS (25.2-36.5)
[2021-04-04 09:22] LABS: CALCIUM 9.3 mg/dL (8.5-10.1)
[2021-04-04 09:23] LABS: ALBUMIN 3.5 g/dl (3.4-5.0); BLOOD UREA NITROGEN 76.2 mg/dL (7-18)
[2021-04-04 09:28] LABS: BILIRUBIN,TOTAL 0.3 mg/dL (0.2-1); TOT PROT 7.5 g/dl (6.4-8.2)
[2021-04-04 11:21] VITALS: BP 179/84; PULSE 90
== END 2021-04-04 11:54 | disposition home or self-care (01) ==
LOC: JER 07:40
DX: T82.868A Thrombosis due to vascular prosthetic devices, implants and grafts, initial encounter (principal)
CPT/HCPCS: 36415; 80053; 84132; 85025; 85610; 85730; 86850; 86900; 86901; 93005; 93010; 93931; 99285-25; C9803; U0003; U0005

== ENCOUNTER 2021-10-15 05:50 | Inpatient (IN) | payer OTHER, BC ==
[2021-10-15] MEDS ORDERED: ACETAMINOPHEN 1000 MG/100 ML BAG IVPB ONE (07:37)
[2021-10-15] MEDS ORDERED: ACETAMINOPHEN INJECTION 100 ML IVPB ONE (07:43)
[2021-10-15 08:33] LABS: BASO % 0.7 % (0-2.0); EOS % 0.8 % (0-4.5); HEMATOCRIT 35.1 % (32.4-45.2); HEMOGLOBIN 11.9 GM/dL (10.7-15.3); LYMPH % 22.6 % (8-40); MCH 31.3 pg (25.7-33.7); MCHC 33.9 g/dl (32.0-36.0); MEAN CELL VOLUME 92.3 fl (80-96); MEAN PLT VOLUME 8.4 fl (7.5-11.1); MONO % 9.8 % (3.8-10.2); NEUT % 66.1 % (42.8-82.8); PLATELET COUNT 182 10^3/uL (134-434); RDW 13.4 % (11.6-15.6); WHITE BLOOD COUNT 8.3 K/mm3 (4.0-10.0)
[2021-10-15 08:45] LABS: CHLORIDE 100 mmol/L (98-107); SODIUM 134 mmol/L (136-145)
[2021-10-15 08:52] LABS: ALBUMIN 3.4 g/dl (3.4-5.0); BLOOD UREA NITROGEN 56.4 mg/dL (7-18); CALCIUM 8.3 mg/dL (8.5-10.1); CO2 24 mmol/L (21-32); CREATININE 5.6 mg/dL (0.55-1.3); GLUCOSE,RANDOM 79 mg/dL (74-106); MAGNESIUM 2.5 mg/dL (1.8-2.4); PHOSPHOROUS 4.8 mg/dL (2.5-4.9); SGOT/AST 40 U/L (15-37); SGPT/ALT 19 U/L (13-61)
[2021-10-15 08:53] LABS: BILIRUBIN,TOTAL 0.5 mg/dL (0.2-1); TOT PROT 7.7 g/dl (6.4-8.2)
[2021-10-15 08:54] LABS: ALK PHOS 100 U/L (45-117); ANION GAP 10 MMOL/L (8-16)
[2021-10-15] MEDS ORDERED: SODIUM CHLORIDE 250 ML IV PRN (09:52)
[2021-10-15] MEDS ORDERED: amLODIPine BESYLATE 10 MG TABLET (FP) ONE (10:00)
[2021-10-15] MEDS: amLODIPine BESYLATE 10 MG TABLET (FP) PO SCH (10:03)
[2021-10-15 10:14] LABS: CHLORIDE 101 mmol/L (98-107); SODIUM 133 mmol/L (136-145)
[2021-10-15 10:16] LABS: CALCIUM 8.2 mg/dL (8.5-10.1); CO2 23 mmol/L (21-32); GLUCOSE,RANDOM 80 mg/dL (74-106)
[2021-10-15 10:17] LABS: BLOOD UREA NITROGEN 56.1 mg/dL (7-18)
[2021-10-15 10:19] LABS: SGPT/ALT 22 U/L (13-61)
[2021-10-15 10:20] LABS: CREATININE 5.6 mg/dL (0.55-1.3); SGOT/AST 43 U/L (15-37)
[2021-10-15 10:21] LABS: BILIRUBIN,TOTAL 0.4 mg/dL (0.2-1); TOT PROT 7.1 g/dl (6.4-8.2)
[2021-10-15 10:22] LABS: ALK PHOS 89 U/L (45-117)
[2021-10-15 10:35] LABS: ACTIVATED PTT 49.8 SECONDS (25.2-36.5); INR 2.79 (0.83-1.09); PROTHROMBIN TIME (PATIENT) 32.4 SEC (9.7-13.0)
[2021-10-15 10:51] LABS: ANION GAP 9 MMOL/L (8-16)
[2021-10-15 12:37] LABS: BLOOD UREA NITROGEN 56.1 mg/dL (7-18); CALCIUM 8.2 mg/dL (8.5-10.1); CHLORIDE 101 mmol/L (98-107); CO2 23 mmol/L (21-32); CREATININE 5.6 mg/dL (0.55-1.3); GLUCOSE,RANDOM 80 mg/dL (74-106); SODIUM 133 mmol/L (136-145)
[2021-10-15 12:38] LABS: ALK PHOS 89 U/L (45-117); BILIRUBIN,TOTAL 0.5 mg/dL (0.2-1); SGOT/AST 43 U/L (15-37); SGPT/ALT 22 U/L (13-61)
[2021-10-15] MEDS: hydrALAZINE HCL 10 MG TABLET PO SCH ×2 (17:16→21:19)
[2021-10-15] MEDS: WARFARIN NA 2 MG TABLET PO SCH ×2 (17:46→17:53)
[2021-10-15] MEDS ORDERED: ACETAMINOPHEN 1000 MG/100 ML BAG IVPB PRN (17:53)
[2021-10-15 19:29] LABS: EPI CELLS 32 /uL (0-25.1); HYALINE CASTS 0 /uL (0-3.1); PH,URINE 8.5 (5.0-8.0); URINE APPEARANCE CLOUDY; URINE BACTERIA 265 /uL (0-1359); URINE BILIRUBIN NEGATIVE (NEGATIVE); URINE COLOR ORANGE; URINE GLUCOSE (UA) NEGATIVE (NEGATIVE); URINE KETONE NEGATIVE (NEGATIVE); URINE LEUK ESTERASE 1+ (NEGATIVE); URINE NITRITE NEGATIVE (NEGATIVE); URINE PROTEIN 2+ (NEGATIVE); URINE UROBILINOGEN 0.2 mg/dL (0.2-1.0); URINE WBC 39 /uL (0-25.8)
[2021-10-15 19:37] LABS: URINE RBC 226 /uL (0-23.9)
[2021-10-16] MEDS: hydrALAZINE HCL 10 MG TABLET PO SCH ×3 (05:30→22:04)
[2021-10-16] MEDS: amLODIPine BESYLATE 10 MG TABLET (FP) PO SCH (09:34)
[2021-10-16] MEDS: ACETAMINOPHEN 325 MG TABLET (FP) PO PRN (09:34)
[2021-10-16 11:43] LABS: BASO % 0.4 % (0-2.0); EOS % 1.4 % (0-4.5); HEMATOCRIT 35.2 % (32.4-45.2); HEMOGLOBIN 11.6 GM/dL (10.7-15.3); LYMPH % 30.6 % (8-40); MCH 30.6 pg (25.7-33.7); MCHC 33.1 g/dl (32.0-36.0); MEAN CELL VOLUME 92.5 fl (80-96); MEAN PLT VOLUME 8.1 fl (7.5-11.1); MONO % 11.1 % (3.8-10.2); NEUT % 56.5 % (42.8-82.8); PLATELET COUNT 189 10^3/uL (134-434); RDW 12.9 % (11.6-15.6); WHITE BLOOD COUNT 8.8 K/mm3 (4.0-10.0)
[2021-10-16 11:47] LABS: INR 2.78 (0.83-1.09); PROTHROMBIN TIME (PATIENT) 32.3 SEC (9.7-13.0)
[2021-10-16 12:16] LABS: CALCIUM 8.3 mg/dL (8.5-10.1)
[2021-10-16 12:17] LABS: ALBUMIN 3.2 g/dl (3.4-5.0); MAGNESIUM 2.1 mg/dL (1.8-2.4)
[2021-10-16 12:20] LABS: CREATININE 4.2 mg/dL (0.55-1.3); PHOSPHOROUS 3.8 mg/dL (2.5-4.9)
[2021-10-16 12:22] LABS: BILIRUBIN,TOTAL 0.5 mg/dL (0.2-1); TOT PROT 7.2 g/dl (6.4-8.2)
[2021-10-16] MEDS ORDERED: SODIUM CHLORIDE 250 ML IV PRN (14:46)
[2021-10-16] MEDS: WARFARIN NA 2 MG TABLET PO SCH (17:03)
[2021-10-17] MEDS: hydrALAZINE HCL 10 MG TABLET PO SCH ×3 (05:48→22:54)
[2021-10-17 13:01] LABS: HEMATOCRIT 33.6 % (32.4-45.2); HEMOGLOBIN 11.5 GM/dL (10.7-15.3); MCH 31.6 pg (25.7-33.7); MCHC 34.1 g/dl (32.0-36.0); MEAN CELL VOLUME 92.6 fl (80-96); MEAN PLT VOLUME 7.8 fl (7.5-11.1); PLATELET COUNT 192 10^3/uL (134-434); RBC 3.63 M/mm3 (3.60-5.2); WHITE BLOOD COUNT 8.2 K/mm3 (4.0-10.0)
[2021-10-17 13:08] LABS: BLOOD UREA NITROGEN 52.3 mg/dL (7-18); CALCIUM 8.6 mg/dL (8.5-10.1)
[2021-10-17 13:11] LABS: CREATININE 5.9 mg/dL (0.55-1.3)
[2021-10-17] MEDS: amLODIPine BESYLATE 10 MG TABLET (FP) PO SCH (16:05)
[2021-10-17] MEDS: ACETAMINOPHEN 325 MG TABLET (FP) PO PRN (16:15)
[2021-10-17] MEDS: WARFARIN NA 2 MG TABLET PO SCH (17:49)
[2021-10-18] MEDS: hydrALAZINE HCL 10 MG TABLET PO SCH ×3 (06:43→21:18)
[2021-10-18 10:35] LABS: HEMATOCRIT 35.1 % (32.4-45.2); MCHC 34.1 g/dl (32.0-36.0); MEAN CELL VOLUME 90.9 fl (80-96); PLATELET COUNT 200 10^3/uL (134-434); RBC 3.86 M/mm3 (3.60-5.2); WHITE BLOOD COUNT 9.5 K/mm3 (4.0-10.0)
[2021-10-18 10:42] LABS: INR 3.49 (0.83-1.09); PROTHROMBIN TIME (PATIENT) 40.7 SEC (9.7-13.0)
[2021-10-18] MEDS: DOCUSATE SODIUM 100 MG CAPSULE (FP) PO PRN ×2 (10:43→21:18)
[2021-10-18] MEDS: ACETAMINOPHEN 325 MG TABLET (FP) PO PRN (10:43)
[2021-10-18] MEDS: amLODIPine BESYLATE 10 MG TABLET (FP) PO SCH (10:45)
[2021-10-18 11:07] LABS: CALCIUM 8.6 mg/dL (8.5-10.1)
[2021-10-18 11:08] LABS: BLOOD UREA NITROGEN 32.1 mg/dL (7-18); MAGNESIUM 2.1 mg/dL (1.8-2.4)
[2021-10-18 11:11] LABS: PHOSPHOROUS 4.5 mg/dL (2.5-4.9)
[2021-10-18 11:12] LABS: CREATININE 4.6 mg/dL (0.55-1.3)
[2021-10-18] MEDS: WARFARIN NA 2 MG TABLET PO SCH (18:13)
[2021-10-18] MEDS: SENNOSIDES 8.6MG TABLET (FP) PO PRN (21:18)
[2021-10-19] MEDS: hydrALAZINE HCL 10 MG TABLET PO SCH ×3 (06:21→21:18)
[2021-10-19] MEDS: amLODIPine BESYLATE 10 MG TABLET (FP) PO SCH (09:11)
[2021-10-19] MEDS: VITAMIN B COMP W-C 1 EA TABLET (NEPHRO-VITE) PO SCH (09:12)
[2021-10-19] MEDS ORDERED: SODIUM CHLORIDE 250 ML IV PRN (14:17)
[2021-10-19] MEDS: DOCUSATE SODIUM 100 MG CAPSULE (FP) PO PRN (21:18)
[2021-10-19] MEDS: SENNOSIDES 8.6MG TABLET (FP) PO PRN (21:18)
[2021-10-19 21:51] LABS: INR 5.05 (0.83-1.09)
[2021-10-20] MEDS: hydrALAZINE HCL 10 MG TABLET PO SCH ×3 (06:41→21:18)
[2021-10-20 10:07] LABS: BASO % 0.6 % (0-2.0); EOS % 3.2 % (0-4.5); HEMATOCRIT 32.6 % (32.4-45.2); HEMOGLOBIN 10.9 GM/dL (10.7-15.3); LYMPH % 32.2 % (8-40); MCH 30.7 pg (25.7-33.7); MCHC 33.4 g/dl (32.0-36.0); MEAN PLT VOLUME 8.2 fl (7.5-11.1); MONO % 7.9 % (3.8-10.2); NEUT % 56.1 % (42.8-82.8); PLATELET COUNT 233 10^3/uL (134-434); RBC 3.55 M/mm3 (3.60-5.2); WHITE BLOOD COUNT 8.3 K/mm3 (4.0-10.0)
[2021-10-20 11:11] LABS: CALCIUM 8.3 mg/dL (8.5-10.1)
[2021-10-20 11:41] LABS: BLOOD UREA NITROGEN 85.6 mg/dL (7-18); CREATININE 7.1 mg/dL (0.55-1.3)
[2021-10-20 12:37] LABS: INR 4.37 (0.83-1.09)
[2021-10-20] MEDS: VITAMIN B COMP W-C 1 EA TABLET (NEPHRO-VITE) PO SCH (13:21)
[2021-10-20] MEDS: amLODIPine BESYLATE 10 MG TABLET (FP) PO SCH (13:22)
[2021-10-20] MEDS ORDERED: WARFARIN NA 2 MG TABLET PO SCH (16:36)
[2021-10-21] MEDS: DOCUSATE SODIUM 100 MG CAPSULE (FP) PO PRN (03:25)
[2021-10-21] MEDS: SENNOSIDES 8.6MG TABLET (FP) PO PRN (03:25)
[2021-10-21] MEDS: hydrALAZINE HCL 10 MG TABLET PO SCH ×3 (05:04→21:38)
[2021-10-21 09:50] LABS: INR 2.88 (0.83-1.09); PROTHROMBIN TIME (PATIENT) 33.5 SEC (9.7-13.0)
[2021-10-21] MEDS: VITAMIN B COMP W-C 1 EA TABLET (NEPHRO-VITE) PO SCH (10:18)
[2021-10-21] MEDS: amLODIPine BESYLATE 10 MG TABLET (FP) PO SCH (10:18)
[2021-10-21 15:57] VITALS: BMI 17.5
[2021-10-21] MEDS ORDERED: WARFARIN NA 2.5 MG TABLET PO SCH (18:00)
[2021-10-21] MEDS ORDERED: WARFARIN NA 2 MG TABLET PO SCH (18:00)
[2021-10-22] MEDS: hydrALAZINE HCL 10 MG TABLET PO SCH ×3 (05:28→21:11)
[2021-10-22] MEDS: VITAMIN B COMP W-C 1 EA TABLET (NEPHRO-VITE) PO SCH (09:34)
[2021-10-22 10:41] LABS: HEMATOCRIT 32.3 % (32.4-45.2); HEMOGLOBIN 11.2 GM/dL (10.7-15.3); MCH 31.8 pg (25.7-33.7); MCHC 34.7 g/dl (32.0-36.0); MEAN CELL VOLUME 91.5 fl (80-96); MEAN PLT VOLUME 7.7 fl (7.5-11.1); PLATELET COUNT 234 10^3/uL (134-434); RBC 3.53 M/mm3 (3.60-5.2); RDW 12.9 % (11.6-15.6); WHITE BLOOD COUNT 8.3 K/mm3 (4.0-10.0)
[2021-10-22 10:43] LABS: INR 2.05 (0.83-1.09); PROTHROMBIN TIME (PATIENT) 23.8 SEC (9.7-13.0)
[2021-10-22] MEDS ORDERED: SODIUM CHLORIDE 250 ML IV PRN (11:08)
[2021-10-22 11:09] LABS: ALBUMIN 2.9 g/dl (3.4-5.0); BLOOD UREA NITROGEN 68.7 mg/dL (7-18); CALCIUM 8.6 mg/dL (8.5-10.1)
[2021-10-22 11:12] LABS: CREATININE 6.5 mg/dL (0.55-1.3)
[2021-10-22 11:14] LABS: BILIRUBIN,TOTAL 0.5 mg/dL (0.2-1); TOT PROT 7.1 g/dl (6.4-8.2)
[2021-10-22] MEDS: amLODIPine BESYLATE 10 MG TABLET (FP) PO SCH (11:49)
[2021-10-22] MEDS: WARFARIN NA 3 MG TABLET PO SCH (18:05)
[2021-10-23] MEDS: hydrALAZINE HCL 10 MG TABLET PO SCH ×2 (05:32→14:08)
[2021-10-23 08:10] LABS: HEMATOCRIT 32.6 % (32.4-45.2); HEMOGLOBIN 10.7 GM/dL (10.7-15.3); INR 1.9 (0.83-1.09); MCH 30.1 pg (25.7-33.7); MCHC 32.9 g/dl (32.0-36.0); MEAN CELL VOLUME 91.5 fl (80-96); MEAN PLT VOLUME 8.3 fl (7.5-11.1); PLATELET COUNT 271 10^3/uL (134-434); RBC 3.56 M/mm3 (3.60-5.2); RDW 12.9 % (11.6-15.6); WHITE BLOOD COUNT 7.3 K/mm3 (4.0-10.0)
[2021-10-23 08:24] LABS: MAGNESIUM 2.4 mg/dL (1.8-2.4)
[2021-10-23 08:28] LABS: PHOSPHOROUS 8.4 mg/dL (2.5-4.9)
[2021-10-23 09:39] LABS: CALCIUM 8.4 mg/dL (8.5-10.1)
[2021-10-23 09:40] LABS: BLOOD UREA NITROGEN 92.6 mg/dL (7-18)
[2021-10-23 09:43] LABS: CREATININE 7.4 mg/dL (0.55-1.3)
[2021-10-23] MEDS: amLODIPine BESYLATE 10 MG TABLET (FP) PO SCH (14:21)
[2021-10-23] MEDS: VITAMIN B COMP W-C 1 EA TABLET (NEPHRO-VITE) PO SCH (14:22)
[2021-10-23 14:49] VITALS: BP 101/47; PULSE 88; RESP 20; TEMP 98.3
[2021-10-23] MEDS: WARFARIN NA 3 MG TABLET PO SCH (17:09)
== END 2021-10-23 17:38 | DRG 682 ==
LOC: JER 05:50 → JERBED 07:56 → J5S 16:30 → J7W 10-20 20:32
PROVIDERS: ADMIT Internal Medicine; ATTEND Internal Medicine
PROC: 5A1D70Z Performance of Urinary Filtration, Intermittent, Less than 6 Hours Per Day (ICD-10-PCS; principal; 2021-10-23)
DX: I12.0 Hypertensive chronic kidney disease with stage 5 chronic kidney disease or end stage renal disease (principal); N18.6 End stage renal disease; E87.5 Hyperkalemia; I16.0 Hypertensive urgency; M25.552 Pain in left hip; R26.2 Difficulty in walking, not elsewhere classified; Z99.2 Dependence on renal dialysis
CPT/HCPCS: 36415; 70450-TC; 71045-TC-FY; 72125-TC; 72192-TC; 73552-TC-LT-FY; 73610-TC-RT-FY; 73630-TC-RT-FY; 80048; 80053; 81003; 82962; 83735; 84100; 84443; 85025; 85027; 85610; 85730; 86704; 86803; 87040; 87086; 87340; 87517; 93005; 93010; 97116-GP; 97162-GP; 99285-25; C9803-CS; U0003; U0005

== ENCOUNTER 2022-07-27 06:57 | Inpatient (IN) | payer OTHER, BC ==
[2022-07-27] MEDS ORDERED: CALCIUM GLUCONATE 10% - 1,000 MG/10 ML VIAL IVPB ONE (08:12)
[2022-07-27] MEDS ORDERED: INSULIN REGULAR HUMAN 100 UNITS/ML *VIAL IVPUSH ONE (08:14)
[2022-07-27] MEDS ORDERED: DEXTROSE 50%-WATER - 25 GM/50 ML VIAL IVPUSH ONE (08:15)
[2022-07-27 08:34] LABS: CHLORIDE 106 mmol/L (98-107); SODIUM 137 mmol/L (136-145)
[2022-07-27 08:36] LABS: CALCIUM 9.8 mg/dL (8.5-10.1)
[2022-07-27 08:37] LABS: ALBUMIN 3.6 g/dl (3.4-5.0); BLOOD UREA NITROGEN 76.8 mg/dL (7-18); CO2 21 mmol/L (21-32); GLUCOSE,RANDOM 92 mg/dL (74-106); MAGNESIUM 2.3 mg/dL (1.8-2.4)
[2022-07-27 08:39] LABS: SGPT/ALT 85 U/L (13-61)
[2022-07-27 08:40] LABS: CREATININE 6.1 mg/dL (0.55-1.3); PHOSPHOROUS 6.7 mg/dL (2.5-4.9); SGOT/AST 78 U/L (15-37)
[2022-07-27 08:41] LABS: TOT PROT 8.2 g/dl (6.4-8.2)
[2022-07-27 08:42] LABS: BILIRUBIN,TOTAL 0.7 mg/dL (0.2-1)
[2022-07-27 08:43] LABS: ALK PHOS 89 U/L (45-117)
[2022-07-27 09:05] LABS: ANION GAP 10 MMOL/L (8-16); POTASSIUM 8.5 mmol/L (3.5-5.1)
[2022-07-27 09:31] LABS: BASO % 0.4 % (0-2.0); EOS % 0.9 % (0-4.5); HEMATOCRIT 32.4 % (32.4-45.2); HEMOGLOBIN 10.9 GM/dL (10.7-15.3); LYMPH % 26.4 % (8-40); MCHC 33.5 g/dl (32.0-36.0); MEAN CELL VOLUME 95.3 fl (80-96); MEAN PLT VOLUME 8.7 fl (7.5-11.1); MONO % 7.3 % (3.8-10.2); PLATELET COUNT 207 10^3/uL (134-434); RDW 15.6 % (11.6-15.6); WHITE BLOOD COUNT 7.5 K/mm3 (4.0-10.0)
[2022-07-27] MEDS ORDERED: amLODIPine BESYLATE 10 MG TABLET (FP) PO ONE (09:31)
[2022-07-27] MEDS ORDERED: hydrALAZINE HCL 10 MG TABLET PO ONE (09:31)
[2022-07-27 09:39] LABS: INR 1.03 (0.83-1.09); PROTHROMBIN TIME (PATIENT) 11.9 SEC (9.7-13.0)
[2022-07-27 09:41] LABS: CHLORIDE 106 mmol/L (98-107); SODIUM 133 mmol/L (136-145)
[2022-07-27 09:42] LABS: ACTIVATED PTT 32.4 SECONDS (25.2-36.5)
[2022-07-27 09:43] LABS: CALCIUM 9.6 mg/dL (8.5-10.1); GLUCOSE,RANDOM 85 mg/dL (74-106)
[2022-07-27 09:44] LABS: BLOOD UREA NITROGEN 76.8 mg/dL (7-18); CO2 19 mmol/L (21-32)
[2022-07-27 09:46] LABS: CREATININE 6.2 mg/dL (0.55-1.3)
[2022-07-27 09:47] LABS: ANION GAP 8 MMOL/L (8-16); POTASSIUM > 10.0 mmol/L (3.5-5.1)
[2022-07-27] MEDS ORDERED: DEXTROSE 50%-WATER 25 GM/50 ML DISP.SYRIN ONE (09:52)
[2022-07-27] MEDS ORDERED: CALCIUM GLUCONATE 10% - 1,000 MG/10 ML VIAL ONE (09:52)
[2022-07-27] MEDS ORDERED: SODIUM CHLORIDE 250 ML IV PRN (10:08)
[2022-07-27] MEDS ORDERED: hydrALAZINE HCL 10 MG TABLET ONE (10:16)
[2022-07-27] MEDS ORDERED: amLODIPine BESYLATE 10 MG TABLET (FP) ONE (10:16)
[2022-07-27 10:46] LABS: CHLORIDE 106 mmol/L (98-107); SODIUM 138 mmol/L (136-145)
[2022-07-27 10:47] LABS: CALCIUM 9.8 mg/dL (8.5-10.1)
[2022-07-27 10:48] LABS: BLOOD UREA NITROGEN 77.7 mg/dL (7-18); CO2 20 mmol/L (21-32); GLUCOSE,RANDOM 91 mg/dL (74-106); POTASSIUM 7.3 mmol/L (3.5-5.1)
[2022-07-27 10:51] LABS: CREATININE 6.2 mg/dL (0.55-1.3)
[2022-07-27 11:07] LABS: ANION GAP 12 MMOL/L (8-16); POTASSIUM 7.2 mmol/L (3.5-5.1)
[2022-07-27] MEDS ORDERED: hydrALAZINE HCL 20 MG/ML VIAL IVPUSH PRN ×3 (12:16→13:28)
[2022-07-27] MEDS: SEVELAMER CARBONATE 800 MG TAB (FP) PO SCH (18:02)
[2022-07-27] MEDS: WARFARIN NA 3 MG TABLET PO SCH (18:02)
[2022-07-27 18:39] LABS: POTASSIUM 2.9 mmol/L (3.5-5.1)
[2022-07-27] MEDS ORDERED: HEPARIN NA (PORCINE) 5,000 UNITS/ML 1ML VIAL SQ SCH (22:00)
[2022-07-28] MEDS: SEVELAMER CARBONATE 800 MG TAB (FP) PO SCH ×3 (07:32→16:45)
[2022-07-28 08:00] LABS: BASO % 0.5 % (0-2.0); EOS % 2.3 % (0-4.5); HEMATOCRIT 33.3 % (32.4-45.2); HEMOGLOBIN 11.3 GM/dL (10.7-15.3); LYMPH % 26.1 % (8-40); MCH 32.4 pg (25.7-33.7); MCHC 34.1 g/dl (32.0-36.0); MEAN PLT VOLUME 9.3 fl (7.5-11.1); NEUT % 62.1 % (42.8-82.8); PLATELET COUNT 173 10^3/uL (134-434); RDW 15.3 % (11.6-15.6); WHITE BLOOD COUNT 6.6 K/mm3 (4.0-10.0)
[2022-07-28 08:13] LABS: INR 1.12 (0.83-1.09)
[2022-07-28 08:27] LABS: POTASSIUM 4.8 mmol/L (3.5-5.1)
[2022-07-28 08:39] LABS: CALCIUM 9.2 mg/dL (8.5-10.1); MAGNESIUM 1.9 mg/dL (1.8-2.4)
[2022-07-28 08:43] LABS: PHOSPHOROUS 5.2 mg/dL (2.5-4.9)
[2022-07-28 08:44] LABS: BILIRUBIN,TOTAL 0.5 mg/dL (0.2-1)
[2022-07-28 09:05] LABS: BLOOD UREA NITROGEN 31.8 mg/dL (7-18)
[2022-07-28] MEDS: amLODIPine BESYLATE 10 MG TABLET (FP) PO SCH (09:37)
[2022-07-28] MEDS: VITAMIN B COMP W-C 1 EA TABLET (NEPHRO-VITE) PO SCH (09:37)
[2022-07-28] MEDS ORDERED: hydrALAZINE HCL 10 MG TABLET PO SCH (14:00)
[2022-07-28] MEDS: AMINO ACIDS/PROTEIN HYDROLYS 30 ML LIQUID.PKT PO SCH (16:45)
[2022-07-28] MEDS: WARFARIN NA 3 MG TABLET PO SCH (17:10)
[2022-07-28] MEDS: hydrALAZINE HCL 25 MG TABLET (FP) PO SCH (21:08)
[2022-07-29] MEDS: hydrALAZINE HCL 25 MG TABLET (FP) PO SCH ×3 (05:45→21:09)
[2022-07-29 07:26] LABS: BASO % 0.2 % (0-2.0); EOS % 2.5 % (0-4.5); HEMATOCRIT 30.2 % (32.4-45.2); HEMOGLOBIN 10.3 GM/dL (10.7-15.3); LYMPH % 23.7 % (8-40); MCH 32.1 pg (25.7-33.7); MCHC 34.2 g/dl (32.0-36.0); MEAN CELL VOLUME 94.1 fl (80-96); MEAN PLT VOLUME 8.8 fl (7.5-11.1); MONO % 9.1 % (3.8-10.2); NEUT % 64.5 % (42.8-82.8); PLATELET COUNT 169 10^3/uL (134-434); RBC 3.21 M/mm3 (3.60-5.2); WHITE BLOOD COUNT 8.3 K/mm3 (4.0-10.0)
[2022-07-29 07:40] LABS: INR 1.1 (0.83-1.09); PROTHROMBIN TIME (PATIENT) 12.7 SEC (9.7-13.0)
[2022-07-29 08:04] LABS: CREATININE 6.2 mg/dL (0.55-1.3); PHOSPHOROUS 7.3 mg/dL (2.5-4.9)
[2022-07-29 08:06] LABS: BILIRUBIN,TOTAL 0.5 mg/dL (0.2-1); TOT PROT 6.6 g/dl (6.4-8.2)
[2022-07-29 08:07] LABS: BLOOD UREA NITROGEN 59.6 mg/dL (7-18)
[2022-07-29] MEDS ORDERED: SODIUM CHLORIDE 250 ML IV PRN (09:00)
[2022-07-29] MEDS ORDERED: WARFARIN NA 3 MG TABLET PO SCH (09:11)
[2022-07-29] MEDS ORDERED: LORazepam 2 MG/ML SDV VIAL IM ONE (10:51)
[2022-07-29] MEDS: AMINO ACIDS/PROTEIN HYDROLYS 30 ML LIQUID.PKT PO SCH ×2 (13:13→17:33)
[2022-07-29] MEDS: amLODIPine BESYLATE 10 MG TABLET (FP) PO SCH (13:13)
[2022-07-29] MEDS: SEVELAMER CARBONATE 800 MG TAB (FP) PO SCH ×3 (13:13→17:33)
[2022-07-29] MEDS: VITAMIN B COMP W-C 1 EA TABLET (NEPHRO-VITE) PO SCH (13:13)
[2022-07-30] MEDS: hydrALAZINE HCL 25 MG TABLET (FP) PO SCH ×3 (05:25→21:19)
[2022-07-30 06:51] LABS: BASO % 0.3 % (0-2.0); EOS % 3.1 % (0-4.5); HEMATOCRIT 26.7 % (32.4-45.2); HEMOGLOBIN 9.4 GM/dL (10.7-15.3); LYMPH % 31.6 % (8-40); MCHC 35.3 g/dl (32.0-36.0); MEAN CELL VOLUME 93.5 fl (80-96); MEAN PLT VOLUME 8.6 fl (7.5-11.1); MONO % 11.8 % (3.8-10.2); NEUT % 53.2 % (42.8-82.8); PLATELET COUNT 147 10^3/uL (134-434); RBC 2.85 M/mm3 (3.60-5.2); WHITE BLOOD COUNT 6.9 K/mm3 (4.0-10.0)
[2022-07-30 07:08] LABS: POTASSIUM 4.5 mmol/L (3.5-5.1)
[2022-07-30 07:10] LABS: INR 1.29 (0.83-1.09); PROTHROMBIN TIME (PATIENT) 14.9 SEC (9.7-13.0)
[2022-07-30 07:16] LABS: ALBUMIN 3.2 g/dl (3.4-5.0); BLOOD UREA NITROGEN 46.8 mg/dL (7-18); CALCIUM 9.3 mg/dL (8.5-10.1); MAGNESIUM 1.9 mg/dL (1.8-2.4)
[2022-07-30 07:19] LABS: CREATININE 5.5 mg/dL (0.55-1.3)
[2022-07-30 07:21] LABS: BILIRUBIN,TOTAL 0.5 mg/dL (0.2-1); TOT PROT 6.6 g/dl (6.4-8.2)
[2022-07-30] MEDS: AMINO ACIDS/PROTEIN HYDROLYS 30 ML LIQUID.PKT PO SCH ×4 (08:29→18:08)
[2022-07-30] MEDS: SEVELAMER CARBONATE 800 MG TAB (FP) PO SCH ×3 (08:29→18:02)
[2022-07-30] MEDS ORDERED: SODIUM ZIRCONIUM CYCLOSILICATE (LOKELMA) 5 GM PACKET PO SCH (10:00)
[2022-07-30] MEDS: amLODIPine BESYLATE 10 MG TABLET (FP) PO SCH (10:14)
[2022-07-30] MEDS: VITAMIN B COMP W-C 1 EA TABLET (NEPHRO-VITE) PO SCH (10:14)
[2022-07-30] MEDS ORDERED: WARFARIN NA 3 MG TABLET PO SCH (11:36)
[2022-07-30] MEDS ORDERED: SODIUM CHLORIDE 250 ML IV PRN (12:17)
[2022-07-30] MEDS ORDERED: hydrALAZINE HCL 20 MG/ML VIAL IVPUSH PRN (15:56)
[2022-07-30] MEDS ORDERED: WARFARIN NA 2 MG TABLET PO ONE (18:00)
[2022-07-31] MEDS: hydrALAZINE HCL 25 MG TABLET (FP) PO SCH ×3 (05:31→21:08)
[2022-07-31 09:09] LABS: CHLORIDE 102 mmol/L (98-107); POTASSIUM 4.9 mmol/L (3.5-5.1); SODIUM 137 mmol/L (136-145)
[2022-07-31 09:12] LABS: ALBUMIN 3.2 g/dl (3.4-5.0); ANION GAP 10 MMOL/L (8-16); CALCIUM 9.4 mg/dL (8.5-10.1); CO2 26 mmol/L (21-32); GLUCOSE,RANDOM 131 mg/dL (74-106); MAGNESIUM 1.9 mg/dL (1.8-2.4)
[2022-07-31 09:14] LABS: SGPT/ALT 35 U/L (13-61)
[2022-07-31 09:15] LABS: PHOSPHOROUS 6.5 mg/dL (2.5-4.9); SGOT/AST 16 U/L (15-37)
[2022-07-31 09:16] LABS: BILIRUBIN,TOTAL 0.4 mg/dL (0.2-1); TOT PROT 6.8 g/dl (6.4-8.2)
[2022-07-31 09:18] LABS: ALK PHOS 55 U/L (45-117); BLOOD UREA NITROGEN 76.3 mg/dL (7-18); CREATININE 7.5 mg/dL (0.55-1.3)
[2022-07-31 10:40] LABS: HEMATOCRIT 27.6 % (32.4-45.2); HEMOGLOBIN 9.2 GM/dL (10.7-15.3); MCH 31.1 pg (25.7-33.7); MCHC 33.3 g/dl (32.0-36.0); MEAN CELL VOLUME 93.4 fl (80-96); MEAN PLT VOLUME 8.8 fl (7.5-11.1); PLATELET COUNT 167 10^3/uL (134-434); RBC 2.96 M/mm3 (3.60-5.2); RDW 14.9 % (11.6-15.6); WHITE BLOOD COUNT 6.8 K/mm3 (4.0-10.0)
[2022-07-31] MEDS: EPOETIN ALFA-EPBX 4,000 UNIT/ML VIAL SQ ONE ×2 (10:52→12:20)
[2022-07-31] MEDS ORDERED: FAMOTIDINE 20 MG TABLET PO SCH (12:00)
[2022-07-31] MEDS: SEVELAMER CARBONATE 800 MG TAB (FP) PO SCH ×3 (12:06→17:07)
[2022-07-31] MEDS: AMINO ACIDS/PROTEIN HYDROLYS 30 ML LIQUID.PKT PO SCH ×2 (12:07→17:07)
[2022-07-31] MEDS: VITAMIN B COMP W-C 1 EA TABLET (NEPHRO-VITE) PO SCH (12:07)
[2022-07-31] MEDS: amLODIPine BESYLATE 10 MG TABLET (FP) PO SCH (12:07)
[2022-07-31] MEDS: FAMOTIDINE 10 MG TABLET PO SCH (12:20)
[2022-07-31 12:59] LABS: INR 1.94 (0.83-1.09); PROTHROMBIN TIME (PATIENT) 22.4 SEC (9.7-13.0)
[2022-07-31] MEDS: WARFARIN NA 3 MG TABLET PO SCH (17:07)
[2022-08-01] MEDS: hydrALAZINE HCL 25 MG TABLET (FP) PO SCH ×3 (05:22→22:13)
[2022-08-01 09:34] LABS: BASO % 0.5 % (0-2.0); EOS % 2.9 % (0-4.5); HEMOGLOBIN 10.1 GM/dL (10.7-15.3); LYMPH % 31.4 % (8-40); MCH 32.8 pg (25.7-33.7); MCHC 34.8 g/dl (32.0-36.0); MEAN CELL VOLUME 94.2 fl (80-96); MEAN PLT VOLUME 9.1 fl (7.5-11.1); MONO % 9.2 % (3.8-10.2); PLATELET COUNT 149 10^3/uL (134-434); RBC 3.08 M/mm3 (3.60-5.2); RDW 14.8 % (11.6-15.6); WHITE BLOOD COUNT 6.8 K/mm3 (4.0-10.0)
[2022-08-01] MEDS: SEVELAMER CARBONATE 800 MG TAB (FP) PO SCH ×3 (09:38→17:36)
[2022-08-01] MEDS: AMINO ACIDS/PROTEIN HYDROLYS 30 ML LIQUID.PKT PO SCH ×2 (09:38→17:36)
[2022-08-01] MEDS: VITAMIN B COMP W-C 1 EA TABLET (NEPHRO-VITE) PO SCH (09:38)
[2022-08-01] MEDS: amLODIPine BESYLATE 10 MG TABLET (FP) PO SCH (09:38)
[2022-08-01] MEDS: FAMOTIDINE 10 MG TABLET PO SCH (09:38)
[2022-08-01 09:47] LABS: INR 2.83 (0.83-1.09); PROTHROMBIN TIME (PATIENT) 32.5 SEC (9.7-13.0)
[2022-08-01] MEDS ORDERED: FAMOTIDINE 20 MG TABLET PO SCH (10:00)
[2022-08-01] MEDS: WARFARIN NA 3 MG TABLET PO SCH (17:36)
[2022-08-02] MEDS: hydrALAZINE HCL 25 MG TABLET (FP) PO SCH ×3 (05:56→21:57)
[2022-08-02] MEDS: AMINO ACIDS/PROTEIN HYDROLYS 30 ML LIQUID.PKT PO SCH ×2 (09:58→16:38)
[2022-08-02] MEDS: VITAMIN B COMP W-C 1 EA TABLET (NEPHRO-VITE) PO SCH (09:58)
[2022-08-02] MEDS: FAMOTIDINE 10 MG TABLET PO SCH (09:58)
[2022-08-02] MEDS: SEVELAMER CARBONATE 800 MG TAB (FP) PO SCH ×3 (09:58→16:44)
[2022-08-02] MEDS: amLODIPine BESYLATE 10 MG TABLET (FP) PO SCH (09:58)
[2022-08-02] MEDS ORDERED: SODIUM ZIRCONIUM CYCLOSILICATE (LOKELMA) 5 GM PACKET PO SCH (10:00)
[2022-08-02 10:52] LABS: PROTHROMBIN TIME (PATIENT) 46.7 SEC (9.7-13.0)
[2022-08-02 11:03] LABS: INR 4.08 (0.83-1.09)
[2022-08-02] MEDS ORDERED: SODIUM CHLORIDE 250 ML IV PRN (15:02)
[2022-08-02 17:53] LABS: PROTHROMBIN TIME (PATIENT) 53.8 SEC (9.7-13.0)
[2022-08-02] MEDS ORDERED: WARFARIN NA 3 MG TABLET PO SCH (18:00)
[2022-08-02 18:27] LABS: INR 4.71 (0.83-1.09)
[2022-08-02 20:45] VITALS: BMI 15.3
[2022-08-03 04:14] VITALS: RESP 18
[2022-08-03] MEDS: hydrALAZINE HCL 25 MG TABLET (FP) PO SCH ×2 (05:50→13:01)
[2022-08-03] MEDS: SEVELAMER CARBONATE 800 MG TAB (FP) PO SCH ×2 (08:28→12:15)
[2022-08-03] MEDS: AMINO ACIDS/PROTEIN HYDROLYS 30 ML LIQUID.PKT PO SCH (08:28)
[2022-08-03 09:15] LABS: BASO % 0.4 % (0-2.0); EOS % 3.4 % (0-4.5); HEMATOCRIT 26.9 % (32.4-45.2); HEMOGLOBIN 9.3 GM/dL (10.7-15.3); LYMPH % 37.7 % (8-40); MCHC 34.5 g/dl (32.0-36.0); MEAN CELL VOLUME 92.7 fl (80-96); MEAN PLT VOLUME 8.5 fl (7.5-11.1); MONO % 9.6 % (3.8-10.2); NEUT % 48.9 % (42.8-82.8); PLATELET COUNT 194 10^3/uL (134-434); RBC 2.91 M/mm3 (3.60-5.2); RDW 14.5 % (11.6-15.6); WHITE BLOOD COUNT 8.1 K/mm3 (4.0-10.0)
[2022-08-03 09:44] LABS: CHLORIDE 100 mmol/L (98-107); POTASSIUM 5.4 mmol/L (3.5-5.1); SODIUM 135 mmol/L (136-145)
[2022-08-03 09:53] LABS: ALBUMIN 3.1 g/dl (3.4-5.0); ANION GAP 10 MMOL/L (8-16); BLOOD UREA NITROGEN 98.2 mg/dL (7-18); CALCIUM 9.1 mg/dL (8.5-10.1); CO2 25 mmol/L (21-32); GLUCOSE,RANDOM 87 mg/dL (74-106)
[2022-08-03 09:56] LABS: PHOSPHOROUS 5.5 mg/dL (2.5-4.9); SGOT/AST 31 U/L (15-37); SGPT/ALT 23 U/L (13-61)
[2022-08-03 09:57] LABS: BILIRUBIN,TOTAL 0.3 mg/dL (0.2-1); TOT PROT 6.4 g/dl (6.4-8.2)
[2022-08-03 09:58] LABS: ALK PHOS 49 U/L (45-117)
[2022-08-03] MEDS: EPOETIN ALFA-EPBX 4,000 UNIT/ML VIAL SQ ONE ×2 (11:29→15:30)
[2022-08-03] MEDS: VITAMIN B COMP W-C 1 EA TABLET (NEPHRO-VITE) PO SCH (12:44)
[2022-08-03] MEDS: FAMOTIDINE 10 MG TABLET PO SCH (12:45)
[2022-08-03] MEDS: amLODIPine BESYLATE 10 MG TABLET (FP) PO SCH (12:45)
[2022-08-03] MEDS ORDERED: FLU VACC QS2022-23(6MOS UP)/PF 60 MCG/0.5 ML SYRINGE IM ONE (14:20)
[2022-08-03 15:48] VITALS: BP 127/72; PULSE 84; TEMP 97.8
[2022-08-03 17:07] LABS: INR 3.84 (0.83-1.09); PROTHROMBIN TIME (PATIENT) 43.9 SEC (9.7-13.0)
[2022-08-03] MEDS ORDERED: WARFARIN NA 3 MG TABLET PO SCH (18:00)
== END 2022-08-03 16:49 | DRG 682 ==
LOC: JER 06:57 → JERBED 10:16 → J4W 13:09 → J5S 07-30 15:48
PROVIDERS: ADMIT Internal Medicine
PROC: 5A1D70Z Performance of Urinary Filtration, Intermittent, Less than 6 Hours Per Day (ICD-10-PCS; principal; 2022-07-27)
PROC: 5A1D70Z Performance of Urinary Filtration, Intermittent, Less than 6 Hours Per Day (ICD-10-PCS; 2022-07-29)
PROC: 5A1D70Z Performance of Urinary Filtration, Intermittent, Less than 6 Hours Per Day (ICD-10-PCS; 2022-07-31)
PROC: 5A1D70Z Performance of Urinary Filtration, Intermittent, Less than 6 Hours Per Day (ICD-10-PCS; 2022-08-03)
DX: I12.0 Hypertensive chronic kidney disease with stage 5 chronic kidney disease or end stage renal disease (principal); E43 Unspecified severe protein-calorie malnutrition; G93.41 Metabolic encephalopathy; N18.6 End stage renal disease; I16.1 Hypertensive emergency; J90 Pleural effusion, not elsewhere classified; Z68.1 Body mass index [BMI] 19.9 or less, adult; K21.9 Gastro-esophageal reflux disease without esophagitis; I25.10 Atherosclerotic heart disease of native coronary artery without angina pectoris; E78.5 Hyperlipidemia, unspecified; E87.5 Hyperkalemia; E87.70 Fluid overload, unspecified; G20 Parkinson's disease; K59.00 Constipation, unspecified; F32.A Depression, unspecified; Z99.2 Dependence on renal dialysis; Z95.5 Presence of coronary angioplasty implant and graft; Z87.11 Personal history of peptic ulcer disease; Z96.643 Presence of artificial hip joint, bilateral; Z91.148 Patient's other noncompliance with medication regimen for other reason
CPT/HCPCS: 0241U-QW; 36415; 71045-TC-FY; 80048; 80053; 82962; 83735; 84100; 84132; 85025; 85027; 85610; 85730; 86704; 86705; 86708; 86803; 87340; 87517; 87635; 93005; 93010; 97116-GP; 97161-GP; 99291; G0008; Q2036; Q5106